=== PATIENT | male | born 1995 | race African-American/Black ===

== ENCOUNTER 2021-05-22 19:51 | Emergency (ER) | payer BC, MEDICAID, SELFPAY ==
[2021-05-22 19:58] VITALS: BP 121/69; PULSE 85; RESP 20; TEMP 36; O2SAT 99; BMI 32.5
[2021-05-22 20:22] LABS: Appearance Urine CLEAR; Color Urine YELLOW; Glucose Urine UA NEG (NEG); Leukocyte Esterase Urine NEG (NEG); Nitrite Urine NEG (NEG); Specific Gravity - Urine >= 1.030 (1.005-1.025); Urine Blood NEG (NEG); Urine Ketones NEG (NEG); Urine Protein TRACE MG/DL (NEG-TRACE)
[2021-05-22 20:38] LABS: COVID-19 Test Negative (Negative)
[2021-05-22 20:40] LABS: Amphetamine Screen Urine Not Detected (Not Detect); Barbiturates, Urine Not Detected (Not Detect); Benzodiazepines Screen Urine Not Detected (Not Detect); Cannabinoid Screen Urine Not Detected (Not Detect); Cocaine Screen Urine Not Detected (Not Detect); Fentanyl, urine Not Detected (Not Detect); Opiate Screen Urine Not Detected (Not Detect); Phencyclidine Screen Urine Not Detected (Not Detect)
--- NOTE | 2021-05-22 21:00 | ED_ITS ---
HPI - Psych General Chief Complaint: Psychiatric Symptoms Stated Complaint: [id number] Time Seen by Provider: 05/22/21 20:44 Source: patient and EMS Mode of arrival: EMS Limitations: no limitations History of Present Illness HPI Narrative: 26-year-old male no significant medical history presenting to the emergency department via ambulance on a Section 12 patient is coming from a skilled nursing. Patient tells me that he made suicidal comments to staff at the skilled nursing, he tells me he hates it there and he frequently has misunderstandings with people that work there. He tells me earlier today he eloped from the skilled nursing, ran away and [place] on [place], he tells me he was found by state game protector who put him into the vehicle and return him back to the skilled nursing. When he got back to the skilled nursing he got upset again and triggered, he made suicidal comments and said that he wanted to hurt himself. At this time he tells me that he is suicidal and he does not want to disclose his plan. He also endorses intermittent homicidal ideation towards some people he however patient will elaborate on him. He tells me he has a psychiatrist and therapist but he does not know their names. He denies visual, auditory and tactile hallucinations. He denies drugs, alcohol and tobacco use. No medical complaints at this time. Patient was evaluated by Behavioral Health team in the community Plan is pending. MD complaint: suicidal ideation Onset (ago): day(s) (1) Duration: constant History of same: No Relieving factors: none Exacerbating factors: other ( Tells me skilled nursing is a trigger.) Associated psychiatric symptoms: none Associated symptoms: denies other symptoms Treatments prior to arrival: placed on mental health hold If self harm: admits thoughts of self harm and has plan ( Will not disclose) Related Data Home Medications Medication Instructions Recorded Confirmed acetylcysteine 600 mg tablet 1,200 mg PO BID 05/22/21 05/22/21 docusate sodium 100 mg capsule 200 mg PO BID 05/22/21 05/22/21 (Colace) ferrous gluconate 325 mg (37.5 mg 324 mg PO DAILY 05/22/21 05/22/21 iron) tablet olanzapine 20 mg tablet 20 mg PO BEDTIME 05/22/21 05/22/21 polyethylene glycol 3350 17 gram 17 g PO DAILY 05/22/21 05/22/21 oral powder packet (Miralax) sertraline 200 mg capsule 200 mg PO DAILY 05/22/21 05/22/21 Allergies Allergy/AdvReac Type Severity Reaction Status Date / Time No Known Allergies Allergy Verified 05/22/21 20:06 Review of Systems Review of Systems: Constitutional : No Fever, No Chills ENT/Mouth : No Ear Pain, No Nasal Congestion, No sore throat Eyes: No Eye Pain, No Swelling, No Redness Cardiovascular : No Chest Pain, No SOB Respiratory : No Cough, No Sputum, No Dyspnea Gastrointestinal : No Nausea, No Vomiting, No Diarrhea, No Hematochezia, No Melena Genitourinary : No Dysuria, No Urinary Frequency, No Hematuria Musculoskeletal : No Myalgias Skin : No Skin Lesions, No rash Neuro : No Weakness, No Numbness, No Paresthesias, No Dizziness, No Headache Psych : positive Anxiety, No Depression, positive SI/HI All other systems reviewed and are negative Yes all other systems are reviewed and are negative [facility] Past Medical History Attestation statement: The following information was validated with the patient. Source: old records reviewed and nursing notes reviewed Social History Social History Advance Directives: No Advance Directives Information Provided: No Physical Exam Vital Signs: Vital Signs: Last Vital Signs Temp 96.8 F 05/22/21 19:58 Pulse 85 05/22/21 19:58 Resp 20 05/22/21 19:58 BP 121/69 05/22/21 19:58 Pulse Ox 99 05/22/21 19:58 BMI result Body Mass Index 32.5 VSS Appearance: Alert.? Oriented X3.? No acute distress.? Head: Normocephalic, atraumatic, no step-offs or deformities Eyes: Pupils equal, round and reactive to light.? ENT: Pharynx normal.? Neck: Normal inspection.? Neck supple.? CVS: Normal heart rate and rhythm.? Pulses normal.? Respiratory: No respiratory distress.? Breath sounds normal.? Abdomen: Soft and nontender.? Skin: Skin warm and dry.? Normal skin color.? Normal skin turgor.? Extremities: No lower extremity edema.? No calf ttp. 5/5 strength to bilateral upper and lower extremities Back: No midline tenderness, no C-spine tenderness, full range of motion, no CVA tenderness bilaterally Neuro: Oriented X 3.? No motor deficit.? No sensory deficit. CN 2-12 intact. Course Reevaluation(s) Reevaluation #1: Urine clean. Urine tox screen negative. COVID negative. Labs pending. Time: 21:08 Reevaluation #2: CBC within normal limits however, there is a slight normocytic anemia noted. Chemistry with no acute electrolyte abnormalities alk-phos is noted to be slightly elevated however patient is not complaining of abdominal pain. At this time patient will be placed in physician observation to allow more time for N revaluation. At this time patient is calm and cooperative. no complaints. Physical examination unchanged from initial. Will continue to monitor. Time: 00:31 MDM - Psych MDM Narrative Medical decision making narrative: 2028 26 yo m no known pmhx presents with SI/ HI from skilled nursing. On a section 12. Seen by N in community, pending dipo Physical examination benign. Plan basic labs, covid and urine. Medical Records Attestation: I reviewed the patient's medical records. Lab Data Attestation: I reviewed the patient's lab results. Result diagrams: 05/22/21 23:31 05/22/21 23:31 Labs: Lab Results 05/22/21 05/22/21 05/22/21 Range/Units 20:05 20:05 20:05 WBC (4.8-10.8) X10*3/uL RBC (4.60-5.80) X10*6/uL Hgb (14.0-18.0) g/dl Hct (42.0-52.0) % MCV (80.0-98.0) fL MCH (27.0-33.0) pg MCHC (31.0-36.0) g/dl RDW (11.0-16.0) % Plt Count (160-400) X10*3/uL MPV (9.4-12.4) fL Immature Gran % (Auto) (0.0-0.4) % Neut % (Auto) (45-73) % Lymph % (Auto) (20-40) % [place] % (Auto) (2-11) % Eos % (Auto) (0-4) % Baso % (Auto) (0-2) % Lymph # (Auto) (1.2-4.9) X10*3/uL [place] # (Auto) (0.1-1.2) X10*3/uL Eos # (Auto) (0.0-0.4) X10*3/uL Baso # (Auto) (0.0-0.2) X10*3/uL Abs Immat Gran (auto) (0.00-0.03) X10*3/uL Absolute Neuts (auto) (2.0-8.3) x10*3/uL Absolute Nucleated RBC (0.0-0.012) X10*3/uL Nucleated RBC % (auto) (0.0-0.2) /100WBC Sodium (135-145) mmol/L Potassium (3.3-5.1) mmol/L Chloride (96-108) mmol/L Carbon Dioxide (22-29) mmol/L Anion Gap (12-20) BUN (9-16) mg/dL Creatinine (0.5-1.4) mg/dL Estim Creat Clear Calc Estimated GFR Random Glucose (60-115) mg/dL Calcium (8.4-10.2) mg/dL Total Bilirubin (0.0-1.0) mg/dL AST (5-37) U/L ALT (0-40) U/L Alkaline Phosphatase (39-117) U/L Total Protein (6.5-8.0) g/dL Albumin (3.5-5.0) g/dL Urine Color YELLOW Urine Appearance CLEAR Urine pH 6.0 (5.0-8.0) Ur Specific [place] >= 1.030 H (1.005-1.025) Urine Protein TRACE (NEG-TRACE) MG/DL Urine Glucose (UA) NEG (NEG) MG/DL Urine Ketones NEG (NEG) MG/DL Urine Blood NEG (NEG) Urine Nitrite NEG (NEG) Ur Leukocyte Esterase NEG (NEG) Urine Opiates Screen Not Detected (Not Detect) Urine Fentanyl Screen Not Detected (Not Detect) Ur Barbiturates Screen Not Detected (Not Detect) Ur Phencyclidine Scrn Not Detected (Not Detect) Ur Amphetamines Screen Not Detected (Not Detect) U Benzodiazepines Scrn Not Detected (Not Detect) Urine Cocaine Screen Not Detected (Not Detect) U Marijuana (THC) Screen Not Detected (Not Detect) COVID-19 ([facility]) Negative (Negative) COVID-19 Clin Com See Note 05/22/21 05/22/21 Range/Units 23:31 23:31 WBC 10.1 (4.8-10.8) X10*3/uL RBC 4.93 (4.60-5.80) X10*6/uL Hgb 13.6 L (14.0-18.0) g/dl Hct 41.9 L (42.0-52.0) % MCV 85.0 (80.0-98.0) fL MCH 27.6 (27.0-33.0) pg MCHC 32.5 (31.0-36.0) g/dl RDW 15.3 (11.0-16.0) % Plt Count 357 (160-400) X10*3/uL MPV 9.7 (9.4-12.4) fL Immature Gran % (Auto) 0.3 (0.0-0.4) % Neut % (Auto) 68.8 (45-73) % Lymph % (Auto) 21.5 (20-40) % [place]mer % (Auto) 7.7 (2-11) % Eos % (Auto) 1.3 (0-4) % Baso % (Auto) 0.4 (0-2) % Lymph # (Auto) 2.2 (1.2-4.9) X10*3/uL [place] # (Auto) 0.8 (0.1-1.2) X10*3/uL Eos # (Auto) 0.1 (0.0-0.4) X10*3/uL Baso # (Auto) 0.0 (0.0-0.2) X10*3/uL Abs Immat Gran (auto) 0.03 (0.00-0.03) X10*3/uL Absolute Neuts (auto) 7.0 (2.0-8.3) x10*3/uL Absolute Nucleated RBC 0.000 (0.0-0.012) X10*3/uL Nucleated RBC % (auto) 0.0 (0.0-0.2) /100WBC Sodium 137 (135-145) mmol/L Potassium 4.2 (3.3-5.1) mmol/L Chloride 101 (96-108) mmol/L Carbon Dioxide 28 (22-29) mmol/L Anion Gap 12 (12-20) BUN 10 (9-16) mg/dL Creatinine 0.82 (0.5-1.4) mg/dL Estim Creat Clear Calc 161.7 Estimated GFR > 60 Random Glucose 94 (60-115) mg/dL Calcium 9.7 (8.4-10.2) mg/dL Total Bilirubin 0.5 (0.0-1.0) mg/dL AST 16 (5-37) U/L ALT 14 (0-40) U/L Alkaline Phosphatase 119 H (39-117) U/L Total Protein 8.7 H (6.5-8.0) g/dL Albumin 4.2 (3.5-5.0) g/dL Urine Color Urine Appearance Urine pH (5.0-8.0) Ur Specific [place] (1.005-1.025) Urine Protein (NEG-TRACE) MG/DL Urine Glucose (UA) (NEG) MG/DL Urine Ketones (NEG) MG/DL Urine Blood (NEG) Urine Nitrite (NEG) Ur Leukocyte Esterase (NEG) Urine Opiates Screen (Not Detect) Urine Fentanyl Screen (Not Detect) Ur Barbiturates Screen (Not Detect) Ur Phencyclidine Scrn (Not Detect) Ur Amphetamines Screen (Not Detect) U Benzodiazepines Scrn (Not Detect) Urine Cocaine Screen (Not Detect) U Marijuana (THC) Screen (Not Detect) COVID-19 (WES) (Negative) COVID-19 Clin Com Critical Care Time Critical Care Time Critical Care Time: No Discharge Plan Discharge Clinical Impression: Suicidal ideation, Homicidal ideations, Conduct disorder Patient Disposition: Still a Patient Prescriptions: No Action docusate sodium [Colace] 100 mg Capsule 200 mg PO BID 0RF olanzapine 20 mg Tablet 20 mg PO BEDTIME 0RF sertraline 200 mg Capsule 200 mg PO DAILY 0RF ferrous gluconate 325 mg (37.5 mg iron) Tablet 324 mg PO DAILY 0RF polyethylene glycol 3350 [Miralax] 17 gram Powder In Packet 17 g PO DAILY 0RF acetylcysteine 600 mg Tablet 1,200 mg PO BID 0RF
[2021-05-22 23:36] LABS: Basophils Percent Auto 0.4 % (0-2); Eosinophils Absolute Auto 0.1 X10*3/uL (0.0-0.4); Eosinophils Percent Auto 1.3 % (0-4); Hematocrit 41.9 % (42.0-52.0); Hemoglobin 13.6 g/dl (14.0-18.0); Imm Gran Abs Auto 0.03 X10*3/uL (0.00-0.03); Imm Gran Pct Auto 0.3 % (0.0-0.4); Lymphocytes Absolute Auto 2.2 X10*3/uL (1.2-4.9); Lymphocytes Percent Auto 21.5 % (20-40); MANUAL DIFF FLAG NO; Mean Corpuscular HGB Conc 32.5 g/dl (31.0-36.0); Mean Corpuscular Hemoglobin 27.6 pg (27.0-33.0); Mean Platelet Volume 9.7 fL (9.4-12.4); Monocytes Absolute Auto 0.8 X10*3/uL (0.1-1.2); Monocytes Percent Auto 7.7 % (2-11); Neutrophils Percent Auto 68.8 % (45-73); Platelet Count 357 X10*3/uL (160-400); Red Blood Count 4.93 X10*6/uL (4.60-5.80); Red Cell Distribution Width 15.3 % (11.0-16.0); White Blood Count 10.1 X10*3/uL (4.8-10.8)
[2021-05-22 23:57] LABS: Alanine Aminotransferase 14 U/L (0-40); Albumin Level 4.2 g/dL (3.5-5.0); Alkaline Phosphatase 119 U/L (39-117); Anion Gap 12 (12-20); Aspartate Amino Transferase 16 U/L (5-37); Bilirubin Total 0.5 mg/dL (0.0-1.0); Blood Urea Nitrogen 10 mg/dL (9-16); Calcium 9.7 mg/dL (8.4-10.2); Carbon Dioxide 28 mmol/L (22-29); Chloride 101 mmol/L (96-108); Creatinine Clr Calc Pharmacy 161.7; Estimated Glomerular Filt Rate > 60; Glucose Random 94 mg/dL (60-115); Potassium 4.2 mmol/L (3.3-5.1); Sodium 137 mmol/L (135-145); Total Protein 8.7 g/dL (6.5-8.0)
[2021-05-23 01:06] VITALS: BP 116/60; PULSE 73; RESP 18; TEMP 37.1; O2SAT 99
--- NOTE | 2021-05-23 05:49 | PC.NURSE ---
Patient stayed awake whole night watching TV, no distress observed/reported, behavior appropriate and non concerning at this time but can be impulsive as reported by Chrissy patient's mother, patient was partially assessed by BHN, patient will be reevaluated by BHN in the morning, VSS, med rec completed/pending provider's approval, will continue to monitor.l
--- NOTE | 2021-05-23 09:55 | PC.NURSE ---
Pt has been ambulatory to bathroom. denies complaints. denies SI. but does state i dont feel right . is able to state needs. wears depends with a liner for preexhisting condition. denies incontinence. Had sml amounts of stool and blood in depends. new supplies provided. This RN to look into history behind this. Pt has been in behavioral control this am.
--- NOTE | 2021-05-23 10:44 | PC.NURSE ---
batooln contacted by this RN. spoke with Shanell. Pt was seen in community last night. Will be reevaled today by Milla between 2and 5 pm.
--- NOTE | 2021-05-23 12:47 | MHC.CARE ---
CARE Team received call from Charlene Knapp [phone] Pt has services through [facility]. She reported Pt been staying a [facility]. Pt has been struggling recently due to transitioning to respite after residing with his mother who he no longer is able to. Charlene reported he is able to return to respite and the contact information is Jeanette Mccullough [phone]
--- NOTE | 2021-05-23 15:54 | PC.NURSE ---
Patient waiting for re-eval in oprder to determine placement status. At this time resting comfortably in bed no c/o at this time.
[2021-05-23] MEDS: OLANZapine 10 MG TABLET 20 MG PO (20:59)
[2021-05-23] MEDS: Docusate Sodium 100 MG CAPSULE 200 MG PO (21:00)
[2021-05-24 01:03] VITALS: BP 123/69; PULSE 74; RESP 18; TEMP 36.7; O2SAT 96
--- NOTE | 2021-05-24 06:24 | PC.NURSE ---
Patient slept through the night, no distress observed/reported, behavior appropriate and non concerning, medication compliant, disposition per [facility] is section 12 in patient bed search, no update on bed search, VSS, will continue to monitor.
--- NOTE | 2021-05-24 07:08 | PC.NURSE ---
patient appears to remain asleep at present respirations are even and unlabored, patient appears in no distress
[2021-05-24] MEDS: Docusate Sodium 100 MG CAPSULE 200 MG PO ×2 (11:50→20:27)
[2021-05-24] MEDS: Sertraline HCL 100 MG TABLET 200 MG PO (11:50)
[2021-05-24] MEDS: Ferrous Sulfate 324 MG TABLET.DR PO (11:50)
[2021-05-24] MEDS: OLANZapine 10 MG TABLET 20 MG PO (20:28)
--- NOTE | 2021-05-24 20:45 | PC.NURSE ---
Patient mother called reported that patient has diagnosis of Hidradenitis Suppurative, provider notified/assessed the patient/ordered Doxy 100 mg BID, first dose was administered at 2039, will continue to monitor.
[2021-05-25 01:18] VITALS: BP 118/70; PULSE 100; RESP 16; TEMP 36.4; O2SAT 100
--- NOTE | 2021-05-25 07:12 | PC.NURSE ---
patient appears to remain asleep at present respirations are even and unlabored patient appears in no distress
[2021-05-25] MEDS: Ferrous Sulfate 324 MG TABLET.DR PO (08:38)
[2021-05-25] MEDS: Docusate Sodium 100 MG CAPSULE 200 MG PO ×2 (08:38→20:02)
[2021-05-25] MEDS: Sertraline HCL 100 MG TABLET 200 MG PO (08:38)
[2021-05-25 16:23] VITALS: BP 133/76; PULSE 66; RESP 16; TEMP 36.8; O2SAT 99
[2021-05-25] MEDS: OLANZapine 10 MG TABLET 20 MG PO (20:01)
[2021-05-26 05:54] VITALS: BP 116/60; PULSE 68; RESP 16; TEMP 36.4; O2SAT 100
--- NOTE | 2021-05-26 06:19 | PC.NURSE ---
Patient slept through the night, no distress observed/reported, behavior quiet, isolating, and non concerning, medication compliant, disposition per [facility] is section 12 inpatient bed search, no update on bed search, VSS, will continue to monitor.
--- NOTE | 2021-05-26 07:04 | PC.NURSE ---
patient awake presently up to the nurses station frequently asking for snacks. respirations are even and unlabored patient appears in no distress
[2021-05-26] MEDS: Ferrous Sulfate 324 MG TABLET.DR PO (08:20)
[2021-05-26] MEDS: Docusate Sodium 100 MG CAPSULE 200 MG PO (08:20)
[2021-05-26] MEDS: Sertraline HCL 100 MG TABLET 200 MG PO (08:20)
== END 2021-05-26 14:49 ==
PROVIDERS: Physician Assistant; Emergency Provider Emergency Medicine Emergency Medical Services; PCP Nurse Practitioner Family
DX: F33.1 Major depressive disorder, recurrent, moderate (principal); F91.9 Conduct disorder, unspecified; R45.851 Suicidal ideations; R45.850 Homicidal ideations; Z20.822 Contact with and (suspected) exposure to COVID-19; Z79.899 Other long term (current) drug therapy
CPT/HCPCS: 36415; 80053; 80307; 81003; 85025; 87635; 99285

== ENCOUNTER 2021-07-17 21:29 | Inpatient (IN) | payer BC, OTHER, SELFPAY ==
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
[2021-07-17 21:35] VITALS: BP 149/66; PULSE 81; RESP 16; TEMP 36.5; O2SAT 98; BMI 25.8
[2021-07-17 22:13] LABS: COVID-19 Test Negative (Negative)
[2021-07-17 22:28] LABS: Amphetamine Screen Urine Not Detected (Not Detect); Barbiturates, Urine Not Detected (Not Detect); Benzodiazepines Screen Urine Not Detected (Not Detect); Cannabinoid Screen Urine Not Detected (Not Detect); Cocaine Screen Urine Not Detected (Not Detect); Fentanyl, urine Not Detected (Not Detect); Opiate Screen Urine Not Detected (Not Detect); Phencyclidine Screen Urine Not Detected (Not Detect)
--- NOTE | 2021-07-18 | ECG_ITS ---
Test Reason : MED CLEARANCE Blood Pressure : / mmHG Vent. Rate : 062 BPM Atrial Rate : 062 BPM P-R Int : 160 ms QRS Dur : 086 ms QT Int : 434 ms P-R-T Axes : 014 037 032 degrees QTc Int : 440 ms Normal sinus rhythm Normal ECG No previous ECGs available Referred By: Katarina Lemus Electronically Signed By:JACE MATTHEW MD
[2021-07-18 06:10] VITALS: BP 130/53; PULSE 74; RESP 16; TEMP 36.8; O2SAT 96
--- NOTE | 2021-07-18 07:02 | PC.NURSE ---
Patient slept through the night, no distress observed/reported, behavior quiet and non concerning at this time, med rec completed/pending provider's approval, disposition per care team is section 12 inpatient bed search, will continue to monitor.
--- NOTE | 2021-07-18 07:13 | PC.NURSE ---
patient appears to remain at rest at present respirations are even and unlabored patient appears in no distress
[2021-07-18 08:43] VITALS: BP 118/59; PULSE 81; RESP 18; O2SAT 96
[2021-07-18 14:35] LABS: Basophils Percent Auto 0.5 % (0-2); Eosinophils Absolute Auto 0.1 X10*3/uL (0.0-0.4); Eosinophils Percent Auto 1.2 % (0-4); Hematocrit 42.9 % (42.0-52.0); Hemoglobin 13.7 g/dl (14.0-18.0); Imm Gran Abs Auto 0.01 X10*3/uL (0.00-0.03); Imm Gran Pct Auto 0.2 % (0.0-0.4); Lymphocytes Absolute Auto 1.9 X10*3/uL (1.2-4.9); Lymphocytes Percent Auto 32.9 % (20-40); MANUAL DIFF FLAG SCAN; Mean Corpuscular HGB Conc 31.9 g/dl (31.0-36.0); Mean Corpuscular Hemoglobin 27.7 pg (27.0-33.0); Mean Corpuscular Volume 86.8 fL (80.0-98.0); Mean Platelet Volume 10.3 fL (9.4-12.4); Monocytes Absolute Auto 1.3 X10*3/uL (0.1-1.2); Monocytes Percent Auto 21.7 % (2-11); Neutrophils Absolute Auto 2.5 x10*3/uL (2.0-8.3); Neutrophils Percent Auto 43.5 % (45-73); Platelet Count 301 X10*3/uL (160-400); Red Blood Count 4.94 X10*6/uL (4.60-5.80); Red Cell Distribution Width 14.6 % (11.0-16.0); SCAN SMEAR FLAG 1; White Blood Count 5.8 X10*3/uL (4.8-10.8)
[2021-07-18 14:42] LABS: Estimated Average Glucose 100 mg/dL; Hemoglobin A1c % 5.1 %
[2021-07-18 14:48] LABS: Alanine Aminotransferase 13 U/L (0-40); Albumin Level 3.9 g/dL (3.5-5.0); Alkaline Phosphatase 132 U/L (39-117); Anion Gap 11 (12-20); Aspartate Amino Transferase 17 U/L (5-37); Bilirubin Total 0.5 mg/dL (0.0-1.0); Blood Urea Nitrogen 13 mg/dL (9-16); Carbon Dioxide 28 mmol/L (22-29); Chloride 101 mmol/L (96-108); Cholesterol 193 mg/dL; Creatinine Clr Calc Pharmacy 136.7; Estimated Glomerular Filt Rate > 60; Glucose Random 74 mg/dL (60-115); HDL Cholesterol 52 mg/dL; LDL Cholesterol Calculated 133 mg/dl; Potassium 4.3 mmol/L (3.3-5.1); Sodium 136 mmol/L (135-145); Total Protein 8.2 g/dL (6.5-8.0); Triglycerides 40 mg/dL
[2021-07-18 14:54] LABS: SLIDE REVIEW VERIFIED
[2021-07-18 15:10] LABS: TSH reflex Free T4 0.75 uIU/mL (0.32-4.0)
[2021-07-18 16:28] VITALS: BP 117/56; PULSE 80; RESP 16; TEMP 36.4; O2SAT 98
--- NOTE | 2021-07-18 17:15 | PC.NURSE ---
Pt refused flu vaccine
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
[2021-07-18 20:22] VITALS: BP 118/56; PULSE 69; RESP 16; TEMP 36.7; O2SAT 98
[2021-07-18] MEDS: OLANZapine 10 MG TABLET 20 MG PO (20:33)
[2021-07-19 09:39] VITALS: BP 116/58; PULSE 66; RESP 16; TEMP 36.8; O2SAT 96
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
[2021-07-19 20:31] VITALS: BP 108/54; PULSE 60; RESP 16; TEMP 36.8; O2SAT 97
[2021-07-19] MEDS: OLANZapine 10 MG TABLET 20 MG PO (21:11)
[2021-07-20 10:22] VITALS: BP 106/59; PULSE 63; RESP 14; TEMP 36.6; O2SAT 97
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
[2021-07-20 18:00] VITALS: BP 107/58; PULSE 65; RESP 18; TEMP 36.6; O2SAT 98
[2021-07-20] MEDS: OLANZapine 10 MG TABLET 20 MG PO (20:53)
[2021-07-21 08:42] VITALS: BP 112/67; PULSE 53; RESP 18; TEMP 36.4; O2SAT 98
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
--- NOTE | 2021-07-21 15:17 | MHC.CLN ---
NUTRITION NURSE REPORTED THAT PATIENT NOT EATING. VISITED WITH PATIENT. STATED THAT NOT EATING OR DRINKING. NO REASON PROVIDED. ENCOURAGED PATIENT TO MAKE OWN SELECTIONS FOR MEALS. RD TO FOLLOW FOR INTAKE.
[2021-07-21 18:00] VITALS: BP 118/66; PULSE 70; RESP 18; TEMP 36.7; O2SAT 96
[2021-07-21] MEDS: OLANZapine 10 MG TABLET 20 MG PO (21:05)
--- NOTE | 2021-07-21 21:50 | PC.NURSE ---
Patient had bowel incontinence. Bed linens changed, room cleaned, patient changed. Notice some patrick red blood on sheets. notified.
[2021-07-22 10:00] VITALS: BP 88/52; PULSE 93; RESP 16; TEMP 36.9; O2SAT 95
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
--- NOTE | 2021-07-22 16:57 | P.CONGS_ITS ---
History of Present Illness Consult details Consult date: 07/22/21 Requesting physician: Aman Rebollar Narrative: 26-year-old male patient presenting with a prior history of hidradenitis, recently underwent incision and drainage of a sacral abscess in early June. He also has open areas in his lower extremities mainly the left thigh. Review of previous records from an outside facility recommended packing the wound with silver alginate on a daily basis. Apparently the patient's mother was packing the wound up until approximately 1 week ago when this was stopped. The patient denies any pain associated with the sacral wound does note occasional bleeding. He does have a pad covering the open wound and notes some blood on his sheets. Review of Systems Review of Systems: Yes all other systems are reviewed and are negative Integumentary/Breasts: Skin/Breast: Reports as per HPI Psychiatric: Psychiatric: Reports depression PMFSH Past Medical History Medical History (Updated 07/22/21 @ 17:01 by Surya Blair MD) Conduct disorder Hidradenitis Social History Social History (Updated 07/17/21 @ 21:48 by Batsheva Bosch DO) Household Members: Other Household Members Other:: [facility] Respite facility Housing: Assisted Living Facility Do you presently have visiting nurse or other home services: No Unable to assess alcohol history related to: Unknown Patient Tobacco Use Status: Never used Tobacco Use of substances other than those prescribed or required for medical reasons: No Currently Displaying Signs/Symptoms of Drug Intoxication Withdrawal: No Have you been hit, kicked, punched, or otherwise hurt by someone within the past year? If so, by whom?: No Do you feel safe in your current relationship?: No Current Relationship Is there a partner from a previous relationship who is making you feel unsafe now?: No Are you made to feel afraid or neglected: No Advance Directives: No Healthcare Proxy: No Guardian: Yes (Mother- Chrissy) Do you have thoughts of harming others: None Do you have a plan to hurt others: No Plan Recently lost weight without trying: No Nutrition Risks: No Nutritional Risk Poor oral hygiene: No service: No Sexual orientation: Don't Know Meds Allergies Allergy/AdvReac Type Severity Reaction Status Date / Time No Known Allergies Allergy Verified 05/22/21 20:06 Active Medications: Current Medications Acetaminophen (Acetaminophen 325 Mg Tablet) 650 mg PO Q6H PRN PRN Reason: Headache/Pain Mild Scale (1-3) Al Hydroxide/Mg Hydroxide (Magnesium Hydrox/Alum Hydrox 30 Ml Oral.Susp) 30 ml PO Q6H PRN PRN Reason: Heartburn/Nausea Docusate Sodium (Docusate Sodium 100 Mg Capsule) 200 mg PO BID [facility] Last Admin: 07/22/21 10:10 Dose: Not Given Documented by: Ferrous Sulfate (Ferrous Sulfate 324 Mg Tablet.Dr) 324 mg PO DAILY [facility] Last Admin: 07/22/21 10:10 Dose: Not Given Documented by: Hydroxyzine HCl (Hydroxyzine Hcl 50 Mg Tablet) 50 mg PO BID PRN PRN Reason: anxiety Hydroxyzine HCl (Hydroxyzine Hcl 25 Mg Tablet) 25 mg PO Q6H PRN PRN Reason: Anxiety Magnesium Hydroxide (Milk Of Magnesia 30 Ml Oral.Susp) 30 ml PO DAILY PRN PRN Reason: Constipation Non-Formulary Medication (Acetylcysteine) 1,200 mg PO BID [facility] Non-Formulary Medication (Minocycline) 1 cap PO BID [facility] Olanzapine (Olanzapine 10 Mg Tablet) 20 mg PO BEDTIME [facility] Last Admin: 07/21/21 21:05 Dose: 20 mg Documented by: Olanzapine (Olanzapine 10 Mg Vial) 10 mg IM BEDTIME PRN PRN Reason: refusal of PO zyprexa (Yoan's Sertraline HCl (Sertraline Hcl 100 Mg Tablet) 200 mg PO DAILY [facility] Last Admin: 07/22/21 10:10 Dose: Not Given Documented by: Trazodone HCl (Trazodone Hcl 100 Mg Tablet) 100 mg PO BEDTIME PRN PRN Reason: Insomnia Home Medications Medication Instructions Recorded Confirmed Last Taken Type acetylcysteine 600 mg tablet 1,200 mg PO BID 05/22/21 07/17/21 Unknown History docusate sodium 100 mg capsule 200 mg PO BID 05/22/21 07/17/21 05/20/21 20:00 History (Colace) olanzapine 20 mg tablet 20 mg PO BEDTIME 05/22/21 07/17/21 05/20/21 20:00 History sertraline 200 mg capsule 200 mg PO DAILY 05/22/21 07/17/21 05/20/21 20:00 History ferrous sulfate 325 mg (65 mg 1 tab PO DAILY 07/17/21 07/17/21 Unknown History iron) tablet,delayed release hydroxyzine pamoate 50 mg capsule 1 cap PO BID PRN 07/17/21 07/17/21 Unknown History minocycline 100 mg capsule 1 cap PO BID 07/17/21 07/17/21 Unknown History Physical Exam Vital Signs: Vital Signs: Last Vital Signs Temp 98.4 F 07/22/21 10:00 Pulse 93 07/22/21 10:00 Resp 16 07/22/21 10:00 BP 88/52 L 07/22/21 10:00 Pulse Ox 95 07/22/21 10:00 BMI result Body Mass Index 25.8 Const: General: cooperative and no acute distress Nutritional Appearance: overweight HEENT: Head: Yes normocephalic and Yes atraumatic Ears: hearing grossly normal bilaterally Resp: Effort & Inspection: normal respiratory effort, no audible wheezes, no cough and no respiratory distress Back/Spine/Pelvis: Other: Incision and drainage site in the lower mid back with an incision approximately 2 cm in length. Wound base is granulated with no evidence of underlying abscess. No surrounding erythema is appreciated. No tenderness to palpation. Back/spine/pelvis image: 1. Incision and drainage site Skin: Other: As noted above in back Extrem: Other: Areas of chronic hidradenitis in the lower extremities especially the left upper medial thigh. Results Labs Result diagrams: 07/18/21 14:26 07/18/21 14:26 Labs: All other labs normal. Assessment and Plan (1) Hidradenitis: Status: Acute Plan Patient with a prior history of hidradenitis an abscess of the lower back in the midline, status post incision and drainage at an outside facility. The wounds are clean with excellent granulation tissue at the base. There is no evidence of ongoing infection at this time. Recommend applying silver alginate to the wound followed by dry sterile dressing to be changed every other day. No additional surgery required at this time. Procedures Date of Service Date of Service: 07/22/21
[2021-07-22 18:00] VITALS: BP 129/74; PULSE 97; RESP 95; TEMP 36.8; O2SAT 95
[2021-07-22] MEDS: OLANZapine 10 MG TABLET 20 MG PO (20:49)
[2021-07-23 09:00] VITALS: BP 109/76; PULSE 76; RESP 16; TEMP 36.4; O2SAT 97
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
--- NOTE | 2021-07-23 15:26 | MHC.CLN ---
F/U NURSE REPORTED THAT PATIENT NOT EATING X 4-5 DAYS. MD ADDED ENSURE TID PER PATIENT REQUEST. PROVIDES 1050 KCAL, 60 G PROTEIN. ATE 100% OF LUNCH TODAY. DX HIDRADENITIS SUPPURATIVE WITH ABSCESS TO LOWER BACK IN MIDLINE. MONITOR INTAKE CLOSELY.
[2021-07-23 21:43] VITALS: BP 118/60; PULSE 89; TEMP 36.7; O2SAT 96
[2021-07-23] MEDS: OLANZapine 10 MG TABLET 20 MG PO (21:51)
[2021-07-24 09:36] VITALS: BP 114/67; PULSE 62; RESP 16; TEMP 36.2; O2SAT 98
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
[2021-07-24] MEDS: OLANZapine 10 MG TABLET 20 MG PO (22:05)
[2021-07-24 22:09] VITALS: BP 118/56; PULSE 69; TEMP 37; O2SAT 98
[2021-07-25 06:00] VITALS: BP 89/50; PULSE 56; RESP 12; TEMP 36.5; O2SAT 97
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
[2021-07-25 20:55] VITALS: BP 126/66; PULSE 79; RESP 18; TEMP 37.1; O2SAT 99
[2021-07-25] MEDS: OLANZapine 10 MG TABLET 30 MG PO (22:16)
[2021-07-25] MEDS: Docusate Sodium 100 MG CAPSULE 200 MG PO (22:16)
[2021-07-25] MEDS: traZODone HCL 100 MG TABLET PO (22:17)
--- NOTE | 2021-07-26 00:53 | PC.NURSE ---
Pt requested and drank 2 vanilla ensures over and above his TID.
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
[2021-07-26 09:42] VITALS: PULSE 61; RESP 18; TEMP 36.3; O2SAT 98
[2021-07-26 22:16] VITALS: BP 115/57; PULSE 74; RESP 18; TEMP 36.9; O2SAT 97
[2021-07-26] MEDS: OLANZapine 10 MG TABLET 30 MG PO (22:31)
[2021-07-27 09:44] VITALS: BP 111/60; PULSE 75; RESP 18; TEMP 36.6; O2SAT 99
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
[2021-07-27 22:40] VITALS: BP 136/63; PULSE 83; RESP 16; TEMP 36.7; O2SAT 98
[2021-07-27] MEDS: OLANZapine 10 MG TABLET 30 MG PO (22:51)
[2021-07-28 09:14] VITALS: BP 118/59; PULSE 75; RESP 20; TEMP 36.3; O2SAT 99
--- NOTE | 2021-07-28 15:14 | MHC.CLN ---
F/U PATIENT REPORTED TO THIS [employer] MANAGER THAT HE HAS STARTED EATING IN THE PAST FEW DAYS. ACCEPTS ENSURE. CONTINUE REGULAR DIET WITH ENSURE TID.
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
[2021-07-28] MEDS: OLANZapine ODT 10 MG TAB.RAPDIS 30 MG TRANSLINGU (21:58)
[2021-07-28] MEDS: Sertraline HCL 100 MG TABLET 200 MG PO (21:58)
[2021-07-28 22:27] VITALS: BP 107/53; PULSE 82; TEMP 36.8; O2SAT 98
[2021-07-29 08:00] VITALS: BP 124/67; PULSE 55; RESP 16; TEMP 36.6; O2SAT 96
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
[2021-07-29 18:00] VITALS: BP 123/61; PULSE 77; RESP 20; TEMP 36.7; O2SAT 98
[2021-07-29 20:54] VITALS: BP 107/51; PULSE 77; TEMP 37; O2SAT 98
[2021-07-29] MEDS: OLANZapine ODT 10 MG TAB.RAPDIS 30 MG TRANSLINGU (22:15)
[2021-07-29] MEDS: Sertraline HCL 100 MG TABLET 200 MG PO (22:17)
[2021-07-30 10:50] VITALS: BP 111/53; PULSE 79; RESP 16; TEMP 36.6; O2SAT 98
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
[2021-07-30 18:00] VITALS: BP 119/59; PULSE 74; RESP 16; TEMP 36.6; O2SAT 98
[2021-07-30] MEDS: OLANZapine ODT 10 MG TAB.RAPDIS 30 MG TRANSLINGU (21:57)
[2021-07-30] MEDS: Sertraline HCL 100 MG TABLET 200 MG PO (21:58)
[2021-07-31 09:11] VITALS: BP 96/55; PULSE 53; RESP 16; TEMP 36.6; O2SAT 97
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
[2021-07-31 22:33] VITALS: BP 119/57; PULSE 81; RESP 18; TEMP 36.7; O2SAT 95
[2021-07-31] MEDS: OLANZapine ODT 10 MG TAB.RAPDIS 30 MG TRANSLINGU (22:37)
[2021-07-31] MEDS: Sertraline HCL 100 MG TABLET 200 MG PO (22:37)
[2021-08-01 09:03] VITALS: BP 97/54; PULSE 63; RESP 20; TEMP 36.7; O2SAT 97
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
--- NOTE | 2021-08-01 12:48 | PC.NURSE ---
Patient alert, oriented. States he is safe to be discharged, is happy to be going to another halfway. Denies SI/HI, denies any concerns. Patient and community provider given discharge instructions, verbalized understanding. Dressing change completed after shower. Wound clean, no drainage noted.
== END 2021-08-01 12:55 | disposition other institution (70) | DRG 755 ==
LOC: HO.ED 07-18 11:36 → HO.PADLT16 07-18 16:11
PROVIDERS: Social Worker; Admitting Provider Psychiatry & Neurology Psychiatry; Emergency Provider Emergency Medicine; Visit Provider Psychiatry & Neurology Psychiatry
DX: F43.24 Adjustment disorder with disturbance of conduct (principal); R45.851 Suicidal ideations; R45.850 Homicidal ideations; F42.9 Obsessive-compulsive disorder, unspecified; Z91.11 Patient's noncompliance with dietary regimen; Z91.14 Patient's other noncompliance with medication regimen; F84.0 Autistic disorder; L73.2 Hidradenitis suppurativa; Z20.822 Contact with and (suspected) exposure to COVID-19; Z79.899 Other long term (current) drug therapy
CPT/HCPCS: 36415; 80053; 80061; 80307; 83036; 84443; 85025; 87635; 93005; 99285

== ENCOUNTER 2021-08-12 20:57 | Emergency (ER) | payer BC, MEDICAID, SELFPAY ==
[2021-08-12 21:03] VITALS: BP 144/77; PULSE 90; RESP 18; TEMP 37.4; O2SAT 98; BMI 33.2
--- NOTE | 2021-08-12 21:05 | ED.PSYCH ---
HPI - Psych General Chief Complaint: Psychiatric Symptoms Stated Complaint: crisis Time Seen by Provider: 08/12/21 21:05 Source: patient Mode of arrival: EMS Limitations: no limitations History of Present Illness HPI Narrative: This is a 26-year-old male past medical history significant for autism spectrum disorder, depression, OCD presents the emergency department after excuse being from his halfway. According to patient the halfway called 911 because the skate, police chased him, got him and advised him to come to the hospital for evaluation. Patient tells me he is suicidal but he does not feel comfortable sharing a plan with me. He also reports associated anxiety and depression. Not willing to elaborate much. Denies, auditory and tactile hallucinations. He denies drugs, alcohol and tobacco. Denies homicidal ideation as well. No medical complaints MD complaint: suicidal ideation, feels depressed and anxiety Onset (ago): unknown History of same: Yes Relieving factors: none Exacerbating factors: none Associated psychiatric symptoms: none Associated symptoms: denies other symptoms Treatments prior to arrival: none Related Data Home Medications Medication Instructions Recorded Confirmed acetylcysteine 600 mg tablet 1,200 mg PO BID 05/22/21 08/12/21 docusate sodium 100 mg capsule 200 mg PO BID 05/22/21 08/12/21 (Colace) ferrous sulfate 325 mg (65 mg 1 tab PO DAILY 07/17/21 08/12/21 iron) tablet,delayed release amoxicillin 875 mg-potassium 1 tab PO BID 08/12/21 08/12/21 clavulanate 125 mg tablet cholecalciferol (vitamin D3) 50 1 tab PO DAILY 08/12/21 08/12/21 mcg (2,000 unit) tablet hydroxyzine HCl 50 mg tablet 1 tab PO BID PRN 08/12/21 08/12/21 multivitamin with folic acid 400 1 tab PO DAILY 08/12/21 08/12/21 mcg tablet (Tab-A-Walter) olanzapine 20 mg tablet 30 mg PO BEDTIME 08/12/21 08/12/21 sertraline 100 mg tablet 2 tab PO DAILY 08/12/21 08/12/21 Allergies Allergy/AdvReac Type Severity Reaction Status Date / Time No Known Allergies Allergy Verified 05/22/21 20:06 Review of Systems Review of Systems: Constitutional : No Fever, No Chills ENT/Mouth : No Ear Pain, No Nasal Congestion, No sore throat Eyes: No Eye Pain, No Swelling, No Redness Cardiovascular : No Chest Pain, No SOB Respiratory : No Cough, No Sputum, No Dyspnea Gastrointestinal : No Nausea, No Vomiting, No Diarrhea, No Hematochezia, No Melena Genitourinary : No Dysuria, No Urinary Frequency, No Hematuria Musculoskeletal : No Myalgias Skin : No Skin Lesions, No rash Neuro : No Weakness, No Numbness, No Paresthesias, No Dizziness, No Headache Psych : positive Anxiety, positive Depression, positive SI/HI All other systems reviewed and are negative Yes all other systems are reviewed and are negative [facility] Past Medical History Attestation statement: The following information was validated with the patient. Source: old records reviewed and nursing notes reviewed Medical History Conduct disorder Hidradenitis Social History Social History Household Members: Other Household Members Other:: [facility] Respite facility Housing: Assisted Living Facility Do you presently have visiting nurse or other home services: No Unable to assess alcohol history related to: Unknown Patient Tobacco Use Status: Never used Tobacco Advance Directives: No Advance Directives Information Provided: No service: No Sexual orientation: Don't Know Physical Exam Vital Signs: Vital Signs: Last Vital Signs Temp 99.4 F 08/12/21 21:03 Pulse 90 08/12/21 21:03 Resp 18 08/12/21 21:03 BP 144/77 H 08/12/21 21:03 Pulse Ox 98 08/12/21 21:03 BMI result Body Mass Index 33.2 VSS Appearance: Alert.? Oriented X3.? No acute distress.? Head: Normocephalic, atraumatic, no step-offs or deformities Eyes: Pupils equal, round and reactive to light.? ENT: Pharynx normal.? Neck: Normal inspection.? Neck supple.? CVS: Normal heart rate and rhythm.? Pulses normal.? Respiratory: No respiratory distress.? Breath sounds normal.? Abdomen: Soft and nontender.? Skin: Skin warm and dry.? Normal skin color.? Normal skin turgor.? Extremities: No lower extremity edema.? No calf ttp. 5/5 strength to bilateral upper and lower extremities Back: No midline tenderness, no C-spine tenderness, full range of motion, no CVA tenderness bilaterally Neuro: Oriented X 3.? No motor deficit.? No sensory deficit. CN 2-12 intact Course Reevaluation(s) Reevaluation #1: CBC appears to be around patient's baseline. Chemistry with no acute electrolyte abnormalities requiring intervention. Magnesium is slightly low however tolerating p.o. fluids, encouraging hydration. Urine clean. Urine toxicology clean. Ethanol negative. COVID negative. At this time patient will be placed in physician observation to allow more time to be evaluated by the behavioral health team. At time observation was started patient common cooperative no acute distress. Will continue to monitor. Time: 23:55 MDM - Psych MDM Narrative Medical decision making narrative: 2105 26-year-old male with conduct disorder presenting to the emergency department after being brought in by ambulance and police status post eloping from halfway. He reports SI without a specific plan, anxiety and depression. Physical examination benign Plan medical clearance then behavioral health consult Medical Records Attestation: I reviewed the patient's medical records. Lab Data Attestation: I reviewed the patient's lab results. Result diagrams: 08/12/21 21:22 08/12/21 21:22 Labs: Lab Results 08/12/21 08/12/21 08/12/21 Range/Units 21:14 21:14 21:14 WBC (4.8-10.8) X10*3/uL RBC (4.60-5.80) X10*6/uL Hgb (14.0-18.0) g/dl Hct (42.0-52.0) % MCV (80.0-98.0) fL MCH (27.0-33.0) pg MCHC (31.0-36.0) g/dl RDW (11.0-16.0) % Plt Count (160-400) X10*3/uL MPV (9.4-12.4) fL Immature Gran % (Auto) (0.0-0.4) % Neut % (Auto) (45-73) % Lymph % (Auto) (20-40) % Bea[place]gard % (Auto) (2-11) % Eos % (Auto) (0-4) % Baso % (Auto) (0-2) % Lymph # (Auto) (1.2-4.9) X10*3/uL [place] # (Auto) (0.1-1.2) X10*3/uL Eos # (Auto) (0.0-0.4) X10*3/uL Baso # (Auto) (0.0-0.2) X10*3/uL Abs Immat Gran (auto) (0.00-0.03) X10*3/uL Absolute Neuts (auto) (2.0-8.3) x10*3/uL Absolute Nucleated RBC (0.0-0.012) X10*3/uL Nucleated RBC % (auto) (0.0-0.2) /100WBC Sodium (135-145) mmol/L Potassium (3.3-5.1) mmol/L Chloride (96-108) mmol/L Carbon Dioxide (22-29) mmol/L Anion Gap (12-20) BUN (9-16) mg/dL Creatinine (0.5-1.4) mg/dL Estim Creat Clear Calc Estimated GFR Random Glucose (60-115) mg/dL Calcium (8.4-10.2) mg/dL Magnesium (1.6-2.6) mg/dL Total Bilirubin (0.0-1.0) mg/dL AST (5-37) U/L ALT (0-40) U/L Alkaline Phosphatase (39-117) U/L Total Protein (6.5-8.0) g/dL Albumin (3.5-5.0) g/dL Urine Color YELLOW Urine Appearance CLEAR Urine pH 6.0 (5.0-8.0) Ur Specific [place] >= 1.030 H (1.005-1.025) Urine Protein NEG (NEG-TRACE) MG/DL Urine Glucose (UA) NEG (NEG) MG/DL Urine Ketones NEG (NEG) MG/DL Urine Blood NEG (NEG) Urine Nitrite NEG (NEG) Ur Leukocyte Esterase NEG (NEG) Urine Opiates Screen Not Detected (Not Detect) Urine Fentanyl Screen Not Detected (Not Detect) Ur Barbiturates Screen Not Detected (Not Detect) Ur Phencyclidine Scrn Not Detected (Not Detect) Ur Amphetamines Screen Not Detected (Not Detect) U Benzodiazepines Scrn Not Detected (Not Detect) Urine Cocaine Screen Not Detected (Not Detect) U Marijuana (THC) Screen Not Detected (Not Detect) Ethyl Alcohol mg/dL COVID-19 ([facility]) Negative (Negative) COVID-19 Clin Com See Note 08/12/21 08/12/21 08/12/21 Range/Units 21:22 21:22 21:22 WBC 10.8 (4.8-10.8) X10*3/uL RBC 4.99 (4.60-5.80) X10*6/uL Hgb 13.9 L (14.0-18.0) g/dl Hct 43.3 (42.0-52.0) % MCV 86.8 (80.0-98.0) fL MCH 27.9 (27.0-33.0) pg MCHC 32.1 (31.0-36.0) g/dl RDW 13.6 (11.0-16.0) % Plt Count 401 H D (160-400) X10*3/uL MPV 9.8 (9.4-12.4) fL Immature Gran % (Auto) 0.3 (0.0-0.4) % Neut % (Auto) 68.6 (45-73) % Lymph % (Auto) 22.5 (20-40) % Bea[place]gard % (Auto) 7.7 (2-11) % Eos % (Auto) 0.6 (0-4) % Baso % (Auto) 0.3 (0-2) % Lymph # (Auto) 2.4 (1.2-4.9) X10*3/uL Bea[place]gard # (Auto) 0.8 (0.1-1.2) X10*3/uL Eos # (Auto) 0.1 (0.0-0.4) X10*3/uL Baso # (Auto) 0.0 (0.0-0.2) X10*3/uL Abs Immat Gran (auto) 0.03 (0.00-0.03) X10*3/uL Absolute Neuts (auto) 7.4 (2.0-8.3) x10*3/uL Absolute Nucleated RBC 0.000 (0.0-0.012) X10*3/uL Nucleated RBC % (auto) 0.0 (0.0-0.2) /100WBC Sodium 139 (135-145) mmol/L Potassium 4.3 (3.3-5.1) mmol/L Chloride 101 (96-108) mmol/L Carbon Dioxide 29 (22-29) mmol/L Anion Gap 13 (12-20) BUN 12 (9-16) mg/dL Creatinine 1.08 (0.5-1.4) mg/dL Estim Creat Clear Calc 124.1 Estimated GFR > 60 Random Glucose 102 D (60-115) mg/dL Calcium 9.7 D (8.4-10.2) mg/dL Magnesium 1.5 L (1.6-2.6) mg/dL Total Bilirubin 0.4 (0.0-1.0) mg/dL AST 16 (5-37) U/L ALT 13 (0-40) U/L Alkaline Phosphatase 140 H (39-117) U/L Total Protein 9.0 H (6.5-8.0) g/dL Albumin 3.9 (3.5-5.0) g/dL Urine Color Urine Appearance Urine pH (5.0-8.0) Ur Specific [place] (1.005-1.025) Urine Protein (NEG-TRACE) MG/DL Urine Glucose (UA) (NEG) MG/DL Urine Ketones (NEG) MG/DL Urine Blood (NEG) Urine Nitrite (NEG) Ur Leukocyte Esterase (NEG) Urine Opiates Screen (Not Detect) Urine Fentanyl Screen (Not Detect) Ur Barbiturates Screen (Not Detect) Ur Phencyclidine Scrn (Not Detect) Ur Amphetamines Screen (Not Detect) U Benzodiazepines Scrn (Not Detect) Urine Cocaine Screen (Not Detect) U Marijuana (THC) Screen (Not Detect) Ethyl Alcohol < 10 mg/dL COVID-19 ([facility]) (Negative) COVID-19 Clin Com Critical Care Time Critical Care Time Critical Care Time: No Discharge Plan Discharge Clinical Impression: Suicidal ideation, Depression, Acute anxiety Patient Disposition: Still a Patient Prescriptions: No Action docusate sodium [Colace] 100 mg Capsule 200 mg PO BID 0RF acetylcysteine 600 mg Tablet 1,200 mg PO BID 0RF olanzapine 20 mg tablet 30 mg PO BEDTIME 0RF multivitamin with folic acid [Tab-A-Walter] 400 mcg tablet 1 tab PO DAILY 0RF hydroxyzine HCl 50 mg tablet 1 tab PO BID PRN (Reason: Anxiety) 0RF amoxicillin-pot clavulanate 875-125 mg tablet 1 tab PO BID 0RF cholecalciferol (vitamin D3) 50 mcg (2,000 unit) tablet 1 tab PO DAILY 0RF sertraline 100 mg tablet 2 tab PO DAILY 0RF ferrous sulfate 325 mg (65 mg iron) tablet,delayed release (DR/EC) 1 tab PO DAILY 0RF
[2021-08-12 21:25] LABS: Appearance Urine CLEAR; Color Urine YELLOW; Glucose Urine UA NEG (NEG); Leukocyte Esterase Urine NEG (NEG); Nitrite Urine NEG (NEG); Specific Gravity - Urine >= 1.030 (1.005-1.025); Urine Blood NEG (NEG); Urine Ketones NEG (NEG); Urine Protein NEG (NEG-TRACE)
--- NOTE | 2021-08-12 21:27 | PHA.MEDREC ---
Pharmacy Consult ? Medication Reconciliation Pharmacy has completed the medication reconciliation.
[2021-08-12 21:28] LABS: Basophils Percent Auto 0.3 % (0-2); Eosinophils Absolute Auto 0.1 X10*3/uL (0.0-0.4); Eosinophils Percent Auto 0.6 % (0-4); Hematocrit 43.3 % (42.0-52.0); Hemoglobin 13.9 g/dl (14.0-18.0); Imm Gran Abs Auto 0.03 X10*3/uL (0.00-0.03); Imm Gran Pct Auto 0.3 % (0.0-0.4); Lymphocytes Absolute Auto 2.4 X10*3/uL (1.2-4.9); Lymphocytes Percent Auto 22.5 % (20-40); MANUAL DIFF FLAG NO; Mean Corpuscular HGB Conc 32.1 g/dl (31.0-36.0); Mean Corpuscular Hemoglobin 27.9 pg (27.0-33.0); Mean Corpuscular Volume 86.8 fL (80.0-98.0); Mean Platelet Volume 9.8 fL (9.4-12.4); Monocytes Absolute Auto 0.8 X10*3/uL (0.1-1.2); Monocytes Percent Auto 7.7 % (2-11); Neutrophils Absolute Auto 7.4 x10*3/uL (2.0-8.3); Neutrophils Percent Auto 68.6 % (45-73); Platelet Count 401 X10*3/uL (160-400); Red Blood Count 4.99 X10*6/uL (4.60-5.80); Red Cell Distribution Width 13.6 % (11.0-16.0); White Blood Count 10.8 X10*3/uL (4.8-10.8)
[2021-08-12 21:39] LABS: COVID-19 Test Negative (Negative)
[2021-08-12 21:41] LABS: Amphetamine Screen Urine Not Detected (Not Detect); Barbiturates, Urine Not Detected (Not Detect); Benzodiazepines Screen Urine Not Detected (Not Detect); Cannabinoid Screen Urine Not Detected (Not Detect); Cocaine Screen Urine Not Detected (Not Detect); Fentanyl, urine Not Detected (Not Detect); Opiate Screen Urine Not Detected (Not Detect); Phencyclidine Screen Urine Not Detected (Not Detect)
[2021-08-12 21:44] LABS: Ethanol < 10 mg/dL
[2021-08-12 21:47] LABS: Alanine Aminotransferase 13 U/L (0-40); Albumin Level 3.9 g/dL (3.5-5.0); Alkaline Phosphatase 140 U/L (39-117); Anion Gap 13 (12-20); Aspartate Amino Transferase 16 U/L (5-37); Bilirubin Total 0.4 mg/dL (0.0-1.0); Blood Urea Nitrogen 12 mg/dL (9-16); Calcium 9.7 mg/dL (8.4-10.2); Carbon Dioxide 29 mmol/L (22-29); Chloride 101 mmol/L (96-108); Creatinine Clr Calc Pharmacy 124.1; Estimated Glomerular Filt Rate > 60; Glucose Random 102 mg/dL (60-115); Magnesium 1.5 mg/dL (1.6-2.6); Potassium 4.3 mmol/L (3.3-5.1); Sodium 139 mmol/L (135-145)
[2021-08-12] MEDS: Amoxicillin/Potassium Clav 875 MG TABLET PO (23:58)
[2021-08-12] MEDS: OLANZapine 10 MG TABLET 30 MG PO (23:58)
[2021-08-13 01:57] VITALS: BP 133/61; PULSE 79; RESP 17; TEMP 36.8; O2SAT 97
--- NOTE | 2021-08-13 02:33 | MHC.CARE ---
CARE team completed evaluation. More collateral is needed from the [facility] residential program. CARE team will follow up in the morning prior to final dispo and plan of care.
--- NOTE | 2021-08-13 07:15 | PC.NURSE ---
Patient slept through the night, no distress observed/reported, patient is on antibiotic for Hidradenitis, patient was assessed by care team/pending disposition-COLIN f/u in the morning, behavior non concerning at this time, will continue to monitor.
--- NOTE | 2021-08-13 07:30 | PC.NURSE ---
patient appears to remain asleep at present respirations are even and unlabored patient appears in no distress.
--- NOTE | 2021-08-13 07:35 | PC.NURSE ---
patient appears to remain asleep at present respirations are even and unlabored patient appears in no distress
[2021-08-13] MEDS: Docusate Sodium 100 MG CAPSULE 200 MG PO (12:10)
[2021-08-13] MEDS: Sertraline HCL 100 MG TABLET 200 MG PO (12:11)
[2021-08-13] MEDS: Multivitamin TABLET 1 TAB PO (12:11)
[2021-08-13] MEDS: Cholecalciferol (Vitamin D3) 25 MCG TABLET 50 MCG PO (12:11)
[2021-08-13] MEDS: Ferrous Sulfate 324 MG TABLET.DR PO (12:12)
[2021-08-13] MEDS: Amoxicillin/Potassium Clav 875 MG TABLET PO (12:12)
--- NOTE | 2021-08-13 15:59 | MHC.CARE ---
Have left multiple messages throughout the afternoon for patient's skilled nursing staff as well as the clinical supervisor unloading.
== END 2021-08-13 18:51 | disposition home or self-care (01) ==
PROVIDERS: Physician Assistant; Emergency Provider Internal Medicine; PCP Nurse Practitioner Family
DX: F33.1 Major depressive disorder, recurrent, moderate (principal); R45.851 Suicidal ideations; F41.1 Generalized anxiety disorder; F43.0 Acute stress reaction; Z20.822 Contact with and (suspected) exposure to COVID-19; Z79.899 Other long term (current) drug therapy
CPT/HCPCS: 80053; 80307; 81003; 82077; 83735; 85025; 87635; 99284

== ENCOUNTER 2021-09-10 13:39 | Emergency (ER) | payer BC, SELFPAY ==
[2021-09-10 13:51] VITALS: BP 128/58; PULSE 94; RESP 18; TEMP 37.2; O2SAT 98; BMI 29.5
--- NOTE | 2021-09-10 14:12 | ED.PSYCH ---
HPI - Psych General Chief Complaint: Psychiatric Symptoms <ARTHUR Mo Last Filed: 09/10/21 16:51> Stated Complaint: SI w/no plan <ARTHUR Mo Last Filed: 09/10/21 16:51> Time Seen by Provider: 09/10/21 14:09 <ARTHUR Mo Last Filed: 09/10/21 16:51> Source: patient and EMS <ARTHUR Mo Last Filed: 09/10/21 16:51> Mode of arrival: EMS <ARTHUR Mo Last Filed: 09/10/21 16:51> Limitations: no limitations <ARTHUR Mo Last Filed: 09/10/21 16:51> History of Present Illness HPI Narrative: 26 y/o male with history of depression, autism, OCD, hidradenitis supperativa who presents to the ER via EMS from his [place] [facility] with recurrence suicidal and homicidal ideation. He reports just being discharged from [facility] after a week-long admission for depression. He was discharged back to the [place] [facility] that ?did not work out in the past.? He reports when he got there he did not feel right, he started having suicidal thoughts about wanting to hang himself. He was also thinking about homicidal thoughts and wanting to her other people in the [place] [facility] because he hates that there. He has never tried to hurt himself before. He is on psych medications and has been compliant with his recent admission. <ARTHUR Mo Last Filed: 09/10/21 16:51> MD complaint: suicidal ideation, feels depressed and homicidal ideation <ARTHUR Mo Last Filed: 09/10/21 16:51> Onset (ago): unknown <ARTHUR Mo Last Filed: 09/10/21 16:51> Duration: constant <ARTHUR Mo Last Filed: 09/10/21 16:51> History of same: Yes <ATRHUR Mo Last Filed: 09/10/21 16:51> Relieving factors: none <ARTHUR Mo Last Filed: 09/10/21 16:51> Exacerbating factors: none <ARTHUR Mo Last Filed: 09/10/21 16:51> Context: significant life stressor <ARTHUR Mo Last Filed: 09/10/21 16:51> Associated psychiatric symptoms: depression and suicidal ideation <ARTHUR Mo Last Filed: 09/10/21 16:51> Associated symptoms: denies other symptoms <ARTHUR Mo Last Filed: 09/10/21 16:51> Treatments prior to arrival: none <ARTHUR Mo Last Filed: 09/10/21 16:51> If self harm: admits thoughts of self harm and has plan <ARTHUR Mo Last Filed: 09/10/21 16:51> Details of plan: To hang himself <ARTHUR Mo Last Filed: 09/10/21 16:51> Related Data Home Medications: Home Medications Medication Instructions Recorded Confirmed docusate sodium 100 mg capsule 200 mg PO BID 05/22/21 09/10/21 (Colace) ferrous sulfate 325 mg (65 mg 1 tab PO DAILY 07/17/21 09/10/21 iron) tablet,delayed release hydroxyzine HCl 50 mg tablet 1 tab PO BID PRN 08/12/21 09/10/21 multivitamin with folic acid 400 1 tab PO DAILY 08/12/21 09/10/21 mcg tablet (Tab-A-Walter) olanzapine 20 mg tablet 30 mg PO BEDTIME 08/12/21 09/10/21 cholecalciferol (vitamin D3) 50 1 tab PO DAILY 09/10/21 09/10/21 mcg (2,000 unit) tablet <ARTHUR Mo Last Filed: 09/10/21 16:51> Allergies/Adverse Reactions: Allergies Allergy/AdvReac Type Severity Reaction Status Date / Time No Known Allergies Allergy Verified 05/22/21 20:06 <ARTHUR Mo Last Filed: 09/10/21 16:51> Review of Systems Review of Systems: Constitutional: No Fever, No Chills ENT/Mouth: No sore throat, No Rhinorrhea, No Swallowing Difficulty Cardiovascular: No Chest Pain, No SOB, No Orthopnea, No Edema Respiratory: No Cough, No Sputum, No Wheezing, No dyspnea Gastrointestinal: No Nausea, No Vomiting, No Diarrhea, No abdominal Pain Genitourinary: No Dysuria, No Urinary Frequency, No Hematuria Musculoskeletal: No joint pain, No Myalgias Skin: No Skin Lesions, No rash Neuro: No Weakness, No Numbness, No Dizziness, No Headache Psych: + Anxiety/Panic, + Depression, +SI, +HI, No AH/VH Heme/Lymph: No Bruising, No Lymphadenopathy <ARTHUR Mo - Last Filed: 09/10/21 16:51> [facility] Past Medical History Medical History: Medical History Conduct disorder Hidradenitis <ARTHUR Mo - Last Filed: 09/10/21 16:51> Social History Social History: Social History Household Members: Other Household Members Other:: [facility] Respite facility Housing: Assisted Living Facility Do you presently have visiting nurse or other home services: No Unable to assess alcohol history related to: Unknown Alcohol intake: never Patient Tobacco Use Status: Never used Tobacco Advance Directives: No Advance Directives Information Provided: No Guardian: Yes (Mother- Chrissy) service: No Sexual orientation: Don't Know <ARTHUR Mo - Last Filed: 09/10/21 16:51> Physical Exam Vital Signs: Vital Signs: Last Vital Signs Temp 97.9 F 09/11/21 07:48 Pulse 70 09/11/21 07:48 Resp 09/11/21 07:48 BP 99/48 L 09/11/21 07:48 Pulse Ox 95 09/11/21 07:48 BMI result Body Mass Index 29.5 <ARTHUR Mo - Last Filed: 09/10/21 16:51> Vital Signs: Last Vital Signs Temp 97.9 F 09/11/21 07:48 Pulse 70 09/11/21 07:48 Resp 09/11/21 07:48 BP 99/48 L 09/11/21 07:48 Pulse Ox 95 09/11/21 07:48 BMI result Body Mass Index 29.5 <ARTHUR Lozada - Last Filed: 09/10/21 23:42> Appearance: Alert. Oriented X3. No acute distress. Eyes: Pupils equal, round and reactive to light. ENT: Pharynx normal. Neck: Normal inspection. Neck supple. CVS: Normal heart rate and rhythm. Pulses normal. Respiratory: No respiratory distress. Breath sounds normal. Abdomen: Soft and nontender. +BS x4 Skin: Skin warm and dry. Normal skin color. Normal skin turgor. No rashes. Extremities: Left inner thigh with evidence inflamed hair follicles, mild irritation. No lower extremity edema. Neuro/psych: Oriented X 3. No motor deficit. No sensory deficit. CN II-XII intact. Flat affect, does not make eye contact. Soft-spoken. Poor insight and judgment. <ARTHUR oM Last Filed: 09/10/21 16:51> Course Course Course Narrative: 26-year-old male with history of OCD, autism, depression, SI, HI presents to the ER after a recent admission at [facility] with recurrent suicidal and homicidal intentions. Will have crisis team evaluate him. Awaiting utox but he does not appear to be intoxicated. <ARTHUR Mo Last Filed: 09/10/21 16:51> Reevaluation(s) Reevaluation #1: Physician observation started at 16:50pm. Patient placed in physician observation because patient is awaiting [facility] evaluation for the possible need of inpatient psych admission. At the time observation was started patient's vital signs were stable. Patient is alert and oriented. Neuro exam is non-focal. CV: RRR and lungs are clear. Will continue to monitor. <ARTHUR Mo Last Filed: 09/10/21 16:51> Reevaluation #2: Patient d/c from [facility] from [facility] inpatient psych. Per care team, they will re-evaluate patient in the morning. Likely patient's presentation is secondary to an issue with his [facility] [place] [facility]. <ARTHUR Lozada Last Filed: 09/10/21 23:42> Time: 23:42 <ARTHUR Lozada Last Filed: 09/10/21 23:42> [facility] - Psych Lab Data Labs: Lab Results 09/10/21 09/10/21 Range/Units 14:23 17:02 Urine Opiates Screen Not Detected (Not Detect) Urine Fentanyl Screen Not Detected (Not Detect) Ur Barbiturates Screen Not Detected (Not Detect) Ur Phencyclidine Scrn Not Detected (Not Detect) Ur Amphetamines Screen Not Detected (Not Detect) U Benzodiazepines Scrn Not Detected (Not Detect) Urine Cocaine Screen Not Detected (Not Detect) U Marijuana (THC) Screen Not Detected (Not Detect) COVID-19 (WES) Negative (Negative) COVID-19 Clin Com See Note <ARTHUR Mo - Last Filed: 09/10/21 16:51> Lab Results 09/10/21 09/10/21 Range/Units 14:23 17:02 Urine Opiates Screen Not Detected (Not Detect) Urine Fentanyl Screen Not Detected (Not Detect) Ur Barbiturates Screen Not Detected (Not Detect) Ur Phencyclidine Scrn Not Detected (Not Detect) Ur Amphetamines Screen Not Detected (Not Detect) U Benzodiazepines Scrn Not Detected (Not Detect) Urine Cocaine Screen Not Detected (Not Detect) U Marijuana (THC) Screen Not Detected (Not Detect) COVID-19 (WES) Negative (Negative) COVID-19 Clin Com See Note <ARTHUR Lozada - Last Filed: 09/10/21 23:42> Discharge Plan Discharge Clinical Impression: Depression, Suicidal ideation, Homicidal ideations <ARTHUR Mo - Last Filed: 09/10/21 16:51> Patient Disposition: Still a Patient <ARTHUR Mo Last Filed: 09/10/21 16:51> Prescriptions: No Action docusate sodium [Colace] 100 mg Capsule 200 mg PO BID 0RF olanzapine 20 mg tablet 30 mg PO BEDTIME 0RF multivitamin with folic acid [Tab-A-Walter] 400 mcg tablet 1 tab PO DAILY 0RF hydroxyzine HCl 50 mg tablet 1 tab PO BID PRN (Reason: Anxiety) 0RF ferrous sulfate 325 mg (65 mg iron) tablet,delayed release (DR/EC) 1 tab PO DAILY 0RF cholecalciferol (vitamin D3) 50 mcg (2,000 unit) tablet 1 tab PO DAILY 0RF <ARTHUR Mo Last Filed: 09/10/21 16:51>
[2021-09-10 14:47] LABS: COVID-19 Test Negative (Negative); IDNOW Serial# 16C4AD1C
[2021-09-10 16:06] VITALS: BP 115/55; PULSE 83; RESP 16; TEMP 37.2; O2SAT 98
[2021-09-10 17:31] LABS: Amphetamine Screen Urine Not Detected (Not Detect); Barbiturates, Urine Not Detected (Not Detect); Benzodiazepines Screen Urine Not Detected (Not Detect); Cannabinoid Screen Urine Not Detected (Not Detect); Cocaine Screen Urine Not Detected (Not Detect); Fentanyl, urine Not Detected (Not Detect); Opiate Screen Urine Not Detected (Not Detect); Phencyclidine Screen Urine Not Detected (Not Detect)
--- NOTE | 2021-09-10 19:14 | PC.NURSE ---
Report given to pod RN.
[2021-09-10 20:07] VITALS: BP 123/71; PULSE 69; RESP 18; TEMP 36.5; O2SAT 99
[2021-09-11 06:37] VITALS: BP 120/66; PULSE 72; RESP 16; TEMP 36.7; O2SAT 95
--- NOTE | 2021-09-11 07:13 | PC.NURSE ---
Patient slept through the night, no distress observed/reported, care team assessed the patient, no disposition at this time will be decided by meeting today with DDS, VSS, behavior appropriate, med rec competed and pending provider's approval, will continue to monitor.
--- NOTE | 2021-09-11 07:25 | PC.NURSE ---
patient appears to remain asleep at present respirations are even and unlabored patient appears in no distress
[2021-09-11 07:48] VITALS: BP 99/48; PULSE 70; RESP 13; TEMP 36.6; O2SAT 95
--- NOTE | 2021-09-11 10:29 | PC.NURSE ---
patient continues to rest and periodically request snacks/ice cream. remains in behavioral control
--- NOTE | 2021-09-11 11:06 | MHC.CARE ---
[facility] picking up patient at 1:00 pm, he is aware of the plan. Providers updated.
== END 2021-09-11 13:27 | disposition other institution (70) ==
PROVIDERS: Physician Assistant; Emergency Provider Emergency Medicine
DX: F33.9 Major depressive disorder, recurrent, unspecified (principal); R45.851 Suicidal ideations; R45.850 Homicidal ideations; F42.9 Obsessive-compulsive disorder, unspecified; F84.0 Autistic disorder; Z79.899 Other long term (current) drug therapy; Z20.822 Contact with and (suspected) exposure to COVID-19
CPT/HCPCS: 80307; 87635; 99284; 99285

== ENCOUNTER 2021-10-17 20:44 | Emergency (ER) | payer BC, SELFPAY ==
[2021-10-17 20:49] VITALS: BP 136/79; PULSE 91; RESP 18; TEMP 36.6; BMI 20.8
[2021-10-17 21:27] LABS: COVID-19 Test Negative (Negative)
[2021-10-17 21:30] LABS: Amphetamine Screen Urine Not Detected (Not Detect); Barbiturates, Urine Not Detected (Not Detect); Benzodiazepines Screen Urine Not Detected (Not Detect); Cannabinoid Screen Urine Not Detected (Not Detect); Cocaine Screen Urine Not Detected (Not Detect); Fentanyl, urine Not Detected (Not Detect); Opiate Screen Urine Not Detected (Not Detect); Phencyclidine Screen Urine Not Detected (Not Detect)
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
[2021-10-17] MEDS: OLANZapine 10 MG TABLET 20 MG PO (22:36)
--- NOTE | 2021-10-17 23:10 | MHC.CARE ---
Case was discussed with ED provider Annette Vivar and CARE hospice team lead Tova Gibson.
== END 2021-10-17 23:45 | disposition home or self-care (01) ==
PROVIDERS: Emergency Provider Internal Medicine
DX: R45.6 Violent behavior (principal); F91.9 Conduct disorder, unspecified; Z20.822 Contact with and (suspected) exposure to COVID-19; R45.850 Homicidal ideations; Z79.899 Other long term (current) drug therapy
CPT/HCPCS: 80307; 87635; 99282; 99284

== ENCOUNTER 2023-03-23 16:03 | Emergency (ER) | payer OTHER, SELFPAY ==
[2023-03-23 16:31] VITALS: BP 143/72; PULSE 98; RESP 18; TEMP 36.8; O2SAT 100; BMI 34.4
[2023-03-23 16:37] VITALS: BP 143/72; PULSE 98; RESP 18; TEMP 36.7; O2SAT 100
--- NOTE | 2023-03-23 17:08 | ED_ITS ---
HPI - Psych General Chief Complaint: Behavioral Concerns Stated Complaint: failure to thrive Time Seen by Provider: 03/23/23 16:49 Source: patient and old records reviewed Mode of arrival: EMS Limitations: no limitations History of Present Illness HPI Narrative: 27 yo male with PMH of OCD, autism spectrum disorder, depression, SI/HI, currently at [facility] at [facility] comes in with [facility] who state he is not eating, coming out of room, taking his medications. When I try to ask him questions he states ask them . intermediate is requesting labs and CARE team which the patient is agreeable to. complaint: other Onset (ago): day(s) (4) Duration: constant History of same: No Relieving factors: none Exacerbating factors: none Context: other Associated psychiatric symptoms: none Associated symptoms: denies other symptoms Treatments prior to arrival: none Related Data Home Medications Medication Instructions Recorded Confirmed ferrous sulfate 325 mg (65 mg 1 tab PO DAILY 07/17/21 03/23/23 iron) tablet,delayed release multivitamin with folic acid 400 1 tab PO DAILY 08/12/21 03/23/23 mcg tablet (Tab-A-Walter) olanzapine 20 mg tablet 20 mg PO BID psychosis 08/12/21 03/23/23 cholecalciferol (vitamin D3) 50 1 tab PO DAILY 09/10/21 03/23/23 mcg (2,000 unit) tablet acetylcysteine 600 mg capsule 1,200 mg PO BID 10/17/21 03/23/23 hydroxyzine pamoate 50 mg capsule 50 mg PO Q6H PRN Anxiety 10/17/21 03/23/23 sertraline 100 mg tablet 2 tab PO DAILY depressive disorder 10/17/21 03/23/23 bupropion HCl 300 mg 24 hr tablet, 300 mg PO DAILY 03/23/23 03/23/23 extended release doxycycline monohydrate 100 mg 100 mg PO BID 03/23/23 03/23/23 capsule folic acid 1 mg tablet 1 mg PO DAILY 03/23/23 03/23/23 metformin 500 mg tablet 500 mg PO BID 03/23/23 03/23/23 methotrexate sodium 2.5 mg tablet 7.5 mg PO QWEEK 03/23/23 03/23/23 Allergies Allergy/AdvReac Type Severity Reaction Status Date / Time No Known Allergies Allergy Verified 02/10/22 20:06 Review of Systems 2 Review of Systems: ROS unable to be obtained due to poor cooperation [facility] Past Medical History Attestation statement: The following information was validated with the patient. Source: old records reviewed Medical History Hidradenitis Conduct disorder Social History Social History Household Members: Other Household Members Other:: DDS Respite facility Housing: Assisted Living Facility Do you presently have visiting nurse or other home services: No Unable to assess alcohol history related to: Unknown Alcohol intake: never Patient Tobacco Use Status: Never used Tobacco Smoked in Last 30 Days: No Use of substances other than those prescribed or required for medical reasons: Unknown Advance Directives: No Advance Directives Information Provided: No Healthcare Proxy: No Guardian: Yes service: No Sexual orientation: Don't Know Physical Exam 2 Vital Signs: Vital Signs: Last Vital Signs Temp 98.1 F 03/23/23 16:37 Pulse 92 03/23/23 20:00 Resp 16 03/23/23 20:00 BP 131/84 03/23/23 20:00 Pulse Ox 99 03/23/23 20:00 O2 Del Method Room Air 03/23/23 20:00 BMI result Body Mass Index 34.4 Appearance: Alert. Oriented X3. No acute distress. Very withdrawn, flat affect. Seems agitated. Eyes: Pupils equal, round and reactive to light. ENT: Pharynx normal. Neck: Normal inspection. Neck supple. CVS: Normal heart rate and rhythm. Pulses normal. Respiratory: No respiratory distress. Breath sounds normal. Abdomen: Soft and nontender. Skin: Skin warm and dry. Normal skin color. Normal skin turgor. bilateral thigh and axilla hidradenitis lesions but no signs of active cellulitis chronic draining wounds Extremities: No lower extremity edema. No calf ttp Neuro: Oriented X 3. No motor deficit. No sensory deficit. Cn2-12 intact Course Course Course Narrative: Physician observation started at 516pm. Patient placed in physician observation because the patient needed more time for CARE team to assess the need for psych admission. At the time observation was started the patient's vitals were stable, patient is alert and oriented but slightly agitated, Neuro: nonfocal, CV RRR, Lungs clear Reevaluation(s) Reevaluation #1: Plan to keep until meeting tomorrow but should be good to go at 2pm Medications Administered Generic Name Dose Route Start Last Admin Trade Name Alanna PRN Reason Stop Dose Admin Bupropion HCl 300 mg 03/23/23 19:30 03/23/23 19:57 Bupropion Hcl Xl 300 Mg Tab.Er.24h PO 300 mg DAILY MARIO Administration Doxycycline Monohydrate 100 mg 03/23/23 21:00 03/23/23 19:57 Doxycycline Monohydrate 100 Mg Capsule PO 100 mg BID MARIO Administration Ferrous Sulfate 324 mg 03/23/23 19:30 03/23/23 19:57 Ferrous Sulfate 324 Mg Tablet.Dr PO 324 mg DAILY MARIO Administration Folic Acid 1 mg 03/23/23 19:30 03/23/23 19:57 Folic Acid 1 Mg Tablet PO 1 mg DAILY MARIO Administration Metformin HCl 500 mg 03/23/23 21:00 03/23/23 19:57 Metformin Hcl 500 Mg Tablet PO 500 mg BID MARIO Administration Multivitamins/Vitamin C 1 tab 03/23/23 19:30 03/23/23 19:58 Multivitamin Tablet PO 1 tab DAILY MARIO Administration Olanzapine 20 mg 03/23/23 21:00 03/23/23 19:57 Olanzapine 10 Mg Tablet PO 20 mg BID MARIO Administration Sertraline HCl 200 mg 03/23/23 19:30 03/23/23 19:57 Sertraline Hcl 100 Mg Tablet PO 200 mg DAILY MARIO Administration Vitamin D 50 mcg 03/23/23 19:30 03/23/23 19:58 Cholecalciferol (Vitamin D3) 25 Mcg Tablet PO 50 mcg DAILY MARIO Administration Medical Decision Making Medical Decision Making MDM Narrative: 27 yo male with PMH of OCD, autism spectrum disorder, depression, SI/HI here with c/o not eating, not taking medications, not leaving room - he will not answer my questions and will not cooperate. At this time will obtain basic labs and CARE team consult. He has MMM and stable VS. Differential Diagnosis Differential Diagnoses: The differential diagnosis associated with the presentation includes depression, FTT Admission/Observation Consideration of admission/observation: Escalation of care including admission/observation considered observe until CARE team sees patient Consult Healthcare Provider Management of the patient was discussed with: Behavioral Health Provider Lab Data [facility] Lab Attestation statement: I reviewed the patient's lab results. 03/23/23 17:18 03/23/23 17:18 Labs: Lab Results 03/23/23 Range/Units 17:18 WBC 14.2 H (4.8-10.8) X10*3/uL RBC 5.34 (4.60-5.80) X10*6/uL Hgb 15.3 (14.0-18.0) g/dl Hct 46.8 (42.0-52.0) % MCV 87.6 (80.0-98.0) fL MCH 28.7 (27.0-33.0) pg MCHC 32.7 (31.0-36.0) g/dl RDW 12.9 (11.0-16.0) % Plt Count 467 H (160-400) X10*3/uL MPV 9.3 L (9.4-12.4) fL Immature Gran % (Auto) 0.3 (0.0-0.4) % Neut % (Auto) 75.4 H (45-73) % Lymph % (Auto) 15.3 L (20-40) % Prentiss % (Auto) 8.4 (2-11) % Eos % (Auto) 0.3 (0-4) % Baso % (Auto) 0.3 (0-2) % Lymph # (Auto) 2.2 (1.2-4.9) X10*3/uL Prentiss # (Auto) 1.2 (0.1-1.2) X10*3/uL Eos # (Auto) 0.0 (0.0-0.4) X10*3/uL Baso # (Auto) 0.0 (0.0-0.2) X10*3/uL Abs Immat Gran (auto) 0.04 H (0.00-0.03) X10*3/uL Absolute Neuts (auto) 10.7 H (2.0-8.3) x10*3/uL Absolute Nucleated RBC 0.000 (0.0-0.012) X10*3/uL Nucleated RBC % (auto) 0.0 (0.0-0.2) /100WBC Sodium 138 (135-145) mmol/L Potassium 3.9 (3.3-5.1) mmol/L Chloride 100 (96-108) mmol/L Carbon Dioxide 26 (22-29) mmol/L Anion Gap 16 (12-20) BUN 10 (9-16) mg/dL Creatinine 0.94 (0.5-1.4) mg/dL Estim Creat Clear Calc 148.4 Estimated GFR > 60 Random Glucose 112 (60-115) mg/dL Calcium 9.9 (8.4-10.2) mg/dL Magnesium 1.9 (1.6-2.6) mg/dL Total Bilirubin 0.4 (0.0-1.0) mg/dL Direct Bilirubin 0.2 (0.0-0.5) mg/dL AST 12 (5-37) U/L ALT 7 (0-40) U/L Alkaline Phosphatase 134 H (39-117) U/L Total Protein 9.8 H (6.5-8.0) g/dL Albumin 4.1 (3.5-5.0) g/dL TSH 0.87 (0.32-4.0) uIU/mL Independent Historian Clinical information obtained from an independent historian. History obtained from or confirmed by: Other ([facility]) External Record Review External record reviewed: Inpatient record Discharge Plan Discharge Clinical Impression: Acute anxiety Patient Disposition: Home, Self-Care Instructions: Anxiety (ED) Additional Instructions: took medications while in ED - please return for any concerns, fevers or signs of infection Prescriptions: No Action olanzapine 20 mg tablet 20 mg PO BID multivitamin with folic acid [Tab-A-Walter] 400 mcg tablet 1 tab PO DAILY ferrous sulfate 325 mg (65 mg iron) tablet,delayed release (DR/EC) 1 tab PO DAILY cholecalciferol (vitamin D3) 50 mcg (2,000 unit) tablet 1 tab PO DAILY sertraline 100 mg tablet 2 tab PO DAILY hydroxyzine pamoate 50 mg capsule 50 mg PO Q6H PRN (Reason: Anxiety) acetylcysteine 600 mg Capsule 1,200 mg PO BID metformin 500 mg tablet 500 mg PO BID methotrexate sodium 2.5 mg tablet 7.5 mg PO QWEEK doxycycline monohydrate 100 mg capsule 100 mg PO BID folic acid 1 mg tablet 1 mg PO DAILY bupropion HCl 300 mg tablet extended release 24 hr 300 mg PO DAILY
[2023-03-23 17:23] LABS: MANUAL DIFF FLAG NO
[2023-03-23 17:24] LABS: Basophils Percent Auto 0.3 % (0-2); Eosinophils Percent Auto 0.3 % (0-4); Hematocrit 46.8 % (42.0-52.0); Hemoglobin 15.3 g/dl (14.0-18.0); Imm Gran Abs Auto 0.04 X10*3/uL (0.00-0.03); Imm Gran Pct Auto 0.3 % (0.0-0.4); Lymphocytes Absolute Auto 2.2 X10*3/uL (1.2-4.9); Lymphocytes Percent Auto 15.3 % (20-40); Mean Corpuscular HGB Conc 32.7 g/dl (31.0-36.0); Mean Corpuscular Hemoglobin 28.7 pg (27.0-33.0); Mean Corpuscular Volume 87.6 fL (80.0-98.0); Mean Platelet Volume 9.3 fL (9.4-12.4); Monocytes Absolute Auto 1.2 X10*3/uL (0.1-1.2); Monocytes Percent Auto 8.4 % (2-11); Neutrophils Absolute Auto 10.7 x10*3/uL (2.0-8.3); Neutrophils Percent Auto 75.4 % (45-73); Platelet Count 467 X10*3/uL (160-400); Red Blood Count 5.34 X10*6/uL (4.60-5.80); Red Cell Distribution Width 12.9 % (11.0-16.0); White Blood Count 14.2 X10*3/uL (4.8-10.8)
[2023-03-23 17:47] LABS: Alanine Aminotransferase 7 U/L (0-40); Albumin Level 4.1 g/dL (3.5-5.0); Alkaline Phosphatase 134 U/L (39-117); Anion Gap 16 (12-20); Aspartate Amino Transferase 12 U/L (5-37); Bilirubin Direct 0.2 mg/dL (0.0-0.5); Bilirubin Total 0.4 mg/dL (0.0-1.0); Blood Urea Nitrogen 10 mg/dL (9-16); Calcium 9.9 mg/dL (8.4-10.2); Carbon Dioxide 26 mmol/L (22-29); Chloride 100 mmol/L (96-108); Creatinine Clr Calc Pharmacy 148.4; Estimated Glomerular Filt Rate > 60; Glucose Random 112 mg/dL (60-115); Magnesium 1.9 mg/dL (1.6-2.6); Potassium 3.9 mmol/L (3.3-5.1); Sodium 138 mmol/L (135-145); Total Protein 9.8 g/dL (6.5-8.0)
[2023-03-23 17:59] LABS: TSH reflex Free T4 0.87 uIU/mL (0.32-4.0)
--- NOTE | 2023-03-23 18:01 | PHA.MEDREC ---
Pharmacy Consult ? Medication Reconciliation Pharmacy has completed the medication reconciliation. alf provided medication list without doses. Utilize claim history for doses. Will need to confirmed MTX day of the week if patient stays. Marge Muniz, JamesD
--- NOTE | 2023-03-23 19:15 | PC.NURSE ---
This Rn assisted primary RN in speaking with PT to encourage pt to eat, take meds and shower. PT agreed to taking medications. Information primary nurseMansoor
--- NOTE | 2023-03-23 19:34 | PC.NURSE ---
Assumed care of pt. Pt lying on stretcher, care worker outside room. pt endorsing no distress at this time. Agreed to cooperate for urine sample, provided and sent. Pending Care Team evaluation.
[2023-03-23] MEDS: OLANZapine 10 MG TABLET 20 MG PO (19:57)
[2023-03-23] MEDS: Doxycycline Monohydrate 100 MG CAPSULE PO (19:57)
[2023-03-23] MEDS: buPROPion HCl XL 300 MG TAB.ER.24H PO (19:57)
[2023-03-23] MEDS: Sertraline HCL 100 MG TABLET 200 MG PO (19:57)
[2023-03-23] MEDS: Folic Acid 1 MG TABLET PO (19:57)
[2023-03-23] MEDS: metFORMIN HCl 500 MG TABLET PO (19:57)
[2023-03-23] MEDS: Ferrous Sulfate 324 MG TABLET.DR PO (19:57)
[2023-03-23] MEDS: Multivitamin TABLET 1 TAB PO (19:58)
[2023-03-23] MEDS: Cholecalciferol (Vitamin D3) 25 MCG TABLET 50 MCG PO (19:58)
[2023-03-23 20:00] VITALS: BP 131/84; PULSE 92; RESP 16; O2SAT 99
[2023-03-23 22:00] VITALS: BP 114/75; PULSE 68; RESP 14; O2SAT 99
--- NOTE | 2023-03-23 22:03 | PC.NURSE ---
Rcvd call from BATSHEVA Velásquez, from patient care team regarding status update. Will be requesting pt remaing Phys Obs for med compliance from provider opposed to immediate DC.
--- NOTE | 2023-03-23 22:47 | MHC.CARE ---
Pt was Psychiatrically cleared by the CARE team and set for discharge but due to miscommunication Pt will remain overnight but will be discharged in the morning. There is a meeting set up for 1pm tomorrow between [facility] Social Work and his [facility] providers, however Pt should still be discharged in the morning ,before the meeting ,as his disposition won't change. CARE team will contact Trista Rebollar ([employer] [phone]) in the morning to arrange orange picker time.
--- NOTE | 2023-03-23 23:34 | PC.NURSE ---
Provided PT with 3 cheese sticks, sandwich and juice.
[2023-03-24 06:00] VITALS: BP 110/80; PULSE 89; RESP 14; O2SAT 97
[2023-03-24 07:18] VITALS: BP 120/72; PULSE 98; RESP 18; TEMP 36.7; O2SAT 98
[2023-03-24] MEDS: Doxycycline Monohydrate 100 MG CAPSULE PO (08:10)
[2023-03-24] MEDS: buPROPion HCl XL 300 MG TAB.ER.24H PO (08:10)
[2023-03-24] MEDS: metFORMIN HCl 500 MG TABLET PO (08:10)
[2023-03-24] MEDS: Ferrous Sulfate 324 MG TABLET.DR PO (08:10)
[2023-03-24] MEDS: Cholecalciferol (Vitamin D3) 25 MCG TABLET 50 MCG PO (08:10)
[2023-03-24] MEDS: OLANZapine 10 MG TABLET 20 MG PO (08:10)
[2023-03-24] MEDS: Folic Acid 1 MG TABLET PO (08:10)
[2023-03-24] MEDS: Multivitamin TABLET 1 TAB PO (08:10)
[2023-03-24] MEDS: Sertraline HCL 100 MG TABLET 200 MG PO (08:10)
--- NOTE | 2023-03-24 09:24 | PC.NURSE ---
assessed patients wounds on axilae and inner thigh. MD notified and also assessed wounds. MD stated that they are chronic and recommends more frequent dressing changes. This RN spoke to Christen HERMAN and communicated that we have no changes in care of wounds except to keep on top of dressing changes and to follow up with doctor who follows Jesse huddleston. Dispo pending pickup
--- NOTE | 2023-03-24 09:26 | MHC.CARE ---
reached out to Trista Rebollar, as indicated to do in order to schedule a discharge time, her number is [phone]. She reports that they need to have an internal discussion about time for transport back to facility.
== END 2023-03-24 10:36 | disposition home or self-care (01) ==
PROVIDERS: Emergency Medicine; Emergency Provider Emergency Medicine
DX: F41.1 Generalized anxiety disorder (principal); F43.0 Acute stress reaction; Z79.899 Other long term (current) drug therapy
CPT/HCPCS: 36415; 80048; 80076; 83735; 84443; 85025; 99284; S9485

== ENCOUNTER 2023-10-26 15:13 | Emergency (ER) | payer OTHER, SELFPAY ==
--- NOTE | ~2023-10-26 | CT_ITS ---
EXAMINATION: CT ABDOMEN AND PELVIS WITH CONTRAST CLINICAL INFORMATION: Buttock wound COMPARISON: None available. TECHNIQUE: Multidetector volumetric images were obtained from the superior aspect of the liver through the pubic symphysis following administration 85 mL of Omnipaque 350 intravenous contrast. Sagittal and coronal reformatted images were obtained on the technologist's workstation. Oral contrast: No This CT examination was performed using dose optimization techniques as appropriate, variously including the following: *Automated exposure control *Adjustment of mA and/or kV according to patient size (this includes techniques or standardized protocols for targeted exams where dose is matched to indication/reason for exam; i.e. extremities or head) *Use of iterative reconstruction technique DLP: 1157 mGy-cm FINDINGS: LUNG BASES: The visualized lung bases are unremarkable. LIVER, GALLBLADDER, AND BILIARY TREE: The liver is normal in size, shape, and attenuation. No focal hepatic lesion or biliary ductal dilatation is present. The gallbladder is unremarkable with no evidence of radiopaque gallstones, gallbladder wall thickening, or obvious pericholecystic inflammatory changes. PANCREAS: Unremarkable. SPLEEN: Unremarkable. ADRENAL GLANDS: Unremarkable. KIDNEYS AND URETERS: The kidneys are normal in size, shape, and attenuation. No hydronephrosis, hydroureter, or calculi seen. No perinephric stranding. BLADDER: Unremarkable. GASTROINTESTINAL TRACT: The small and large bowel are unremarkable. The appendix is unremarkable. Minimal right perianal subcutaneous soft tissue thickening and air which could represent an anal fissure or soft tissue wound. No extension into the perirectal space ABDOMINAL WALL: No significant hernia is appreciated. LYMPH NODES: Normal. VASCULAR: Unremarkable. PELVIC VISCERA: Unremarkable. OSSEOUS STRUCTURES: Unremarkable. CT/CT abdomen pelvis w IV con IMPRESSION: Minimal right perianal subcutaneous soft tissue thickening and air which could represent an anal fissure or soft tissue wound. No extension into the perirectal space.
[2023-10-26 15:26] VITALS: BP 129/68; PULSE 87; RESP 16; TEMP 36.8; O2SAT 96; BMI 35.5
--- NOTE | 2023-10-26 15:28 | ED_ITS ---
HPI - General Adult General Chief complaint: Skin/Abscess/Foreign Body Stated complaint: skin issues Time Seen by Provider: 10/26/23 16:35 Source: patient, RN notes reviewed and old records reviewed Mode of arrival: ambulatory Limitations: no limitations History of Present Illness ED Provider: LEANNE ACOSTA PA-C HPI narrative: 28 year old male with pmhx significant for autism, depression, OCD, hidradenitis suppurativa presents to the ED today for evaluation of pain in his buttocks associated with drainage x weeks. Reports an open area of skin between his buttocks with associated yellow drainage that becomes painful while showering when the area gets wet. He has not been taking anything at home for the pain. He is currently completing a course of prednisone prescribed by his PCP. Not currently on antibiotics. He has not been seen by wound care or general surgery for this. Denies fevers, chills, N/V, abdominal pain. Related Data Home Medications ?Medication ?Instructions ?Recorded ?Confirmed ferrous sulfate 325 mg (65 mg 1 tab PO DAILY 07/17/21 03/23/23 iron) tablet,delayed release multivitamin with folic acid 400 1 tab PO DAILY 08/12/21 03/23/23 mcg tablet (Tab-A-Walter) olanzapine 20 mg tablet 20 mg PO BID psychosis 08/12/21 03/23/23 cholecalciferol (vitamin D3) 50 1 tab PO DAILY 09/10/21 03/23/23 mcg (2,000 unit) tablet acetylcysteine 600 mg capsule 1,200 mg PO BID 10/17/21 03/23/23 hydroxyzine pamoate 50 mg capsule 50 mg PO Q6H PRN Anxiety 10/17/21 03/23/23 sertraline 100 mg tablet 2 tab PO DAILY depressive disorder 10/17/21 03/23/23 bupropion HCl 300 mg 24 hr tablet, 300 mg PO DAILY 03/23/23 03/23/23 extended release doxycycline monohydrate 100 mg 100 mg PO BID 03/23/23 03/23/23 capsule folic acid 1 mg tablet 1 mg PO DAILY 03/23/23 03/23/23 metformin 500 mg tablet 500 mg PO BID 03/23/23 03/23/23 methotrexate sodium 2.5 mg tablet 7.5 mg PO QWEEK 03/23/23 03/23/23 Previous Rx's ?Medication ?Instructions ?Recorded amoxicillin 875 mg-potassium 1 tab PO BID #14 tabs 10/26/23 clavulanate 125 mg tablet Allergies Allergy/AdvReac Type Severity Reaction Status Date / Time No Known Allergies Allergy Verified 10/26/23 15:30 Review of Systems 2 Review of Systems: Constitutional: No fever, chills, fatigue, night sweats, weight changes ENT/Mouth: No ear pain, hearing loss, nasal congestion, sinus pain, rhinorrhea, sore throat Eyes: No eye pain, swelling, redness, vision changes, discharge Cardio: No chest pain, palpitations, [place], orthopnea, peripheral edema Pulm: No SOB, cough, sputum, wheezing, dyspnea, hemoptysis GI: No nausea, vomiting, hematemesis, abdominal pain, diarrhea, constipation, hematochezia, melena : No irregular bleeding, dysuria, frequency, urgency, hesitancy, hematuria, flank pain, urinary flow changes, urinary incontinence or retention MSK: No back pain, neck pain, joint pain, myalgias, +buttock pain Skin: No lesions, rashes Neuro: No weakness, numbness, paresthesias, LOC, dizziness, headache Psych: No anxiety/panic, depression, SI/HI, AH/VH All other systems reviewed and are negative. [facility] Past Medical History Attestation statement: The following information was validated with the patient. Source: old records reviewed and nursing notes reviewed Medical History Hidradenitis Conduct disorder Social History Social History Household Members: Other Household Members Other:: DDS Respite facility Housing: Assisted Living Facility Do you presently have visiting nurse or other home services: No Unable to assess alcohol history related to: Unknown Alcohol intake: never Patient Tobacco Use Status: Never used Tobacco Smoked in Last 30 Days: No Use of substances other than those prescribed or required for medical reasons: No Advance Directives: No Advance Directives Information Provided: No Do you have a plan to hurt others: No Plan service: No Sexual orientation: Don't Know Physical Exam ED Vital Signs: Vital Signs - 24 hr 10/26/23 15:26 10/26/23 17:31 10/26/23 20:53 Temperature 98.3 F 98.3 F Pulse Rate 87 73 73 Respiratory Rate 16 12 16 Blood Pressure 129/68 114/72 114/72 Pulse Oximetry 96 9 L 98 Oxygen Delivery Method Room Air Room Air Room Air BMI result Body Mass Index 35.5 Vital signs stable, afebrile Const General: cooperative, healthy appearing, comfortable and no acute distress Orientation/consciousness: patient oriented x3 HENMT Head: Yes normal to inspection, Yes No palpable skull fracture present, Yes normocephalic and Yes atraumatic Eyes General: appearance normal, both eyes and all related structures Pupils: Equal, round and reactive pupils present Neck Neck: Yes normal visual inspection, Yes full ROM and Yes no lymphadenopathy Resp Effort & Inspection: normal respiratory effort and able to speak in complete sentences Cardio Rate: regular rate Rhythm: regular rhythm GI Other: Obese abdomen, soft, nondistended, nontender to palpation, no rebound tenderness or guarding. General: Yes no CVA tenderness Back/Spine/Pelvis Back: no CVA tenderness Skin Other: + refer to photos of buttocks below + large open wound noted to gluteal cleft wih granulation tissue and yellow drainage. unable to visualize depth. ttp. Neuro General: patient oriented x3 Cranial nerves: Yes Equal, round and reactive pupils present Course Course Course Narrative: This is a Rapid Medical Examination (RME) performed by Gagandeep Paulino PA-C in triage. Full HPI, ROS, assessment and treatment plan per primary provider in the Main ED. 28 yo male with history of Autism, depression, OCD, history of hidradenitis who presents to the ER for evaluation of pain in his buttocks associated with drainage. He is concerned he has hidradenitis in this area. Pain when showering and water gets on it. He describes an open area of skin with drainage. Plan: examination in treatment room Reevaluation(s) Reevaluation #1: 1826-- CBC with slight leukocytosis of 12 without left shift. This is likely secondary to current prednisone course. I do not have concern for systemic infection. Chemistry without acute electrolyte abnormality requiring intervention. Normal renal function. Lactic WNL at 1. I do not have suspicion for sepsis at this time and do not feel as though patient needs IV antibiotics. Currently receiving IV fluids along with morphine for pain control. > patient stable at the end of my shift. Sign-out given to Alta PUCKETT pending urinalysis, CT abdomen/pelvis and disposition. Reevaluation #2: CT/CT abdomen pelvis w IV con IMPRESSION: Minimal right perianal subcutaneous soft tissue thickening and air which could represent an anal fissure or soft tissue wound. No extension into the perirectal space. will start augmentin. referral to surgery and wound center. stable for d/c home with outpatient follow up Time: 20:37 Medications Administered Discontinued Medications Generic Name Dose Route Start Last Admin Trade Name Alanna PRN Reason Stop Dose Admin Sodium Chloride 1,000 mls @ 999 mls/hr 10/26/23 17:15 10/26/23 18:30 Ns IV 10/26/23 18:15 Infused .Q1H1M MARIO Infusion Iohexol 85 ml 10/26/23 19:07 10/26/23 19:08 Iohexol 350 Mg/Ml 100 Ml Infus..Btl IV 10/26/23 19:08 85 ml ONCE ONE Administration Morphine Sulfate 2 mg 10/26/23 17:11 10/26/23 17:23 Morphine Sulfate 2 Mg/Ml Cartridge IVPUSH 10/26/23 17:12 2 mg ONCE ONE Administration Protocol Medical Decision Making Medical Decision Making [facility] Narrative: 28 year old male with pmhx significant for autism, depression, OCD, hidradenitis suppurativa presents to the ED today for evaluation of pain in his buttocks associated with drainage x weeks. Vital signs stable, afebrile. He is nontoxic appearing in no acute distress however an obvious discomfort when sitting on buttocks. On exam, large open wound noted to gluteal cleft wih granulation tissue and yellow drainage. unable to visualize depth. ttp. Differential diagnosis includes chronic wound. Will obtain CT abdomen/pelvis to rule out osteo/abscess. No concern for septic infection. Plan for labs, CT abdomen/pelvis, IV fluids, pain control. Differential Diagnosis Differential Diagnoses: The differential diagnosis associated with the presentation includes As above Admission/Observation Consideration of admission/observation: Escalation of care including admission/observation considered Admission considered on presentation. Lab Data [facility] Lab Attestation statement: I reviewed the patient's lab results. As above 10/26/23 17:08 10/26/23 17:08 Labs: Lab Results 10/26/23 10/26/23 10/26/23 Range/Units 17:07 17:08 19:27 WBC 12.0 H (4.8-10.8) X10*3/uL RBC 4.72 (4.60-5.80) X10*6/uL Hgb 12.8 L (14.0-18.0) g/dl Hct 39.6 L (42.0-52.0) % MCV 83.9 (80.0-98.0) fL MCH 27.1 (27.0-33.0) pg MCHC 32.3 (31.0-36.0) g/dl RDW 14.0 (11.0-16.0) % Plt Count 460 H (160-400) X10*3/uL MPV 9.6 (9.4-12.4) fL Immature Gran % (Auto) 0.4 (0.0-0.4) % Neut % (Auto) 62.1 (45-73) % Lymph % (Auto) 23.4 (20-40) % [place] % (Auto) 12.0 H (2-11) % Eos % (Auto) 1.7 (0-4) % Baso % (Auto) 0.4 (0-2) % Lymph # (Auto) 2.8 (1.2-4.9) X10*3/uL [place] # (Auto) 1.4 H (0.1-1.2) X10*3/uL Eos # (Auto) 0.2 (0.0-0.4) X10*3/uL Baso # (Auto) 0.1 (0.0-0.2) X10*3/uL Abs Immat Gran (auto) 0.05 H (0.00-0.03) X10*3/uL Absolute Neuts (auto) 7.5 (2.0-8.3) x10*3/uL Absolute Nucleated RBC 0.000 (0.0-0.012) X10*3/uL Nucleated RBC % (auto) 0.0 (0.0-0.2) /100WBC Sodium 136 (135-145) mmol/L Potassium 4.0 (3.3-5.1) mmol/L Chloride 100 (96-108) mmol/L Carbon Dioxide 25 (22-29) mmol/L Anion Gap 15 (12-20) BUN 12 (9-16) mg/dL Creatinine 0.86 (0.5-1.4) mg/dL Estim Creat Clear Calc 163.1 Estimated GFR > 60 Random Glucose 97 (60-115) mg/dL Lactic Acid 1.0 (0.5-2.0) mmol/L Calcium 9.2 D (8.4-10.2) mg/dL Magnesium 1.7 (1.6-2.6) mg/dL Urine Color Yellow Urine Appearance Clear Urine pH 6.0 (5.0-9.0) Ur Specific [place] 1.010 (1.005-1.025) Urine Protein Negative (Neg-Trace) mg/dL Urine Glucose (UA) Negative (Negative) mg/dL Urine Ketones Negative (Negative) mg/dL Urine Blood Negative (Negative) Urine Nitrite Negative (Negative) Ur Leukocyte Esterase Negative (Negative) Independent Interpretation I performed an independent interpretation of an: CT Scan Interpretation: CT abdomen/ pelvis showing soft tissue thickening, agree with radiologist's interpretation. Radiology Impression Discussion of test interpretation with radiology: I have reviewed the radiologist's reading. Radiologist Impression: EXAMINATION: CT ABDOMEN AND PELVIS WITH CONTRAST CLINICAL INFORMATION: Buttock wound COMPARISON: None available. TECHNIQUE: Multidetector volumetric images were obtained from the superior aspect of the liver through the pubic symphysis following administration 85 mL of Omnipaque 350 intravenous contrast. Sagittal and coronal reformatted images were obtained on the technologist's workstation. Oral contrast: No This CT examination was performed using dose optimization techniques as appropriate, variously including the following: *Automated exposure control *Adjustment of mA and/or kV according to patient size (this includes techniques or standardized protocols for targeted exams where dose is matched to indication/reason for exam; i.e. extremities or head) *Use of iterative reconstruction technique DLP: 1157 mGy-cm FINDINGS: LUNG BASES: The visualized lung bases are unremarkable. LIVER, GALLBLADDER, AND BILIARY TREE: The liver is normal in size, shape, and attenuation. No focal hepatic lesion or biliary ductal dilatation is present. The gallbladder is unremarkable with no evidence of radiopaque gallstones, gallbladder wall thickening, or obvious pericholecystic inflammatory changes. PANCREAS: Unremarkable. SPLEEN: Unremarkable. ADRENAL GLANDS: Unremarkable. KIDNEYS AND URETERS: The kidneys are normal in size, shape, and attenuation. No hydronephrosis, hydroureter, or calculi seen. No perinephric stranding. BLADDER: Unremarkable. GASTROINTESTINAL TRACT: The small and large bowel are unremarkable. The appendix is unremarkable. Minimal right perianal subcutaneous soft tissue thickening and air which could represent an anal fissure or soft tissue wound. No extension into the perirectal space ABDOMINAL WALL: No significant hernia is appreciated. LYMPH NODES: Normal. VASCULAR: Unremarkable. PELVIC VISCERA: Unremarkable. OSSEOUS STRUCTURES: Unremarkable. CT/CT abdomen pelvis w IV con IMPRESSION: Minimal right perianal subcutaneous soft tissue thickening and air which could represent an anal fissure or soft tissue wound. No extension into the perirectal space. External Record Review External record reviewed: Inpatient record Prescription Management I considered prescription management with: Pain Medication and Antibiotic (augmentin) Chronic Conditions Patient?s care impacted by: Other (Hidradenitis suppurativa) Social Determinants Patient?s care significantly limited by Social Determinants of Health including: Other Social Determinant of Health Critical Care Time Critical Care Time Critical Care Time: Yes Total Critical Care Time: 32 Attestation: Critical care time in the amount of 32 minutes has been provided to the patient in terms of direct patient care, frequent reevaluation on IV morphine, review and interpretation of medical data and results, and management of potentially life-threatening conditions. This is all outside of any medical procedures. Discharge Plan Discharge Clinical Impression: Buttock wound Patient Disposition: Home, Self-Care Instructions: Acute Wounds (DC) Additional Instructions: your lab workup today was reassuring your CT scan did not show any deep infection recommend you follow up with [facility] for further evaluation and treatment Take the prescribed antibiotics as directed, complete the entire course and do not miss any doses Take motrin and tylenol for pain If you develop new or worsening symptoms call 911 or come back to the ER for further evaluation. Prescriptions: New amoxicillin-pot clavulanate 875-125 mg tablet 1 tab PO BID Qty: 14 0RF No Action olanzapine 20 mg tablet 20 mg PO BID multivitamin with folic acid [Tab-A-Walter] 400 mcg tablet 1 tab PO DAILY ferrous sulfate 325 mg (65 mg iron) tablet,delayed release (DR/EC) 1 tab PO DAILY cholecalciferol (vitamin D3) 50 mcg (2,000 unit) tablet 1 tab PO DAILY sertraline 100 mg tablet 2 tab PO DAILY hydroxyzine pamoate 50 mg capsule 50 mg PO Q6H PRN (Reason: Anxiety) acetylcysteine 600 mg Capsule 1,200 mg PO BID metformin 500 mg tablet 500 mg PO BID methotrexate sodium 2.5 mg tablet 7.5 mg PO QWEEK doxycycline monohydrate 100 mg capsule 100 mg PO BID folic acid 1 mg tablet 1 mg PO DAILY bupropion HCl 300 mg tablet extended release 24 hr 300 mg PO DAILY Referrals: [facility] [Provider Group] (CT/CT abdomen pelvis w IV con IMPRESSION: Minimal right perianal subcutaneous soft tissue thickening and air which could represent an anal fissure or soft tissue wound. No extension into the perirectal space.) [facility] [[place]] Interventions: ED Discharge Assessment Last Done: 10/26/23 20:53 Discharge Date/Time: 10/26/23 20:54 Print Language: Citizen [place]
--- NOTE | 2023-10-26 16:44 | PC.NURSE ---
Provider to bedside for primary eval, plan for labs and imaging.
[2023-10-26 17:13] LABS: MANUAL DIFF FLAG NO
[2023-10-26] MEDS: 0.9 % Sodium Chloride 1,000 ML 999 ML IV (17:23)
[2023-10-26] MEDS: Morphine Sulfate 2 MG/ML CARTRIDGE IVPUSH (17:23)
--- NOTE | 2023-10-26 17:25 | PC.NURSE ---
Pt medicated per MAR, IVF infusing without difficulty. Awaiting CT scan, aware of plan of care.
[2023-10-26 17:30] LABS: Anion Gap 15 (12-20); Blood Urea Nitrogen 12 mg/dL (9-16); Calcium 9.2 mg/dL (8.4-10.2); Carbon Dioxide 25 mmol/L (22-29); Chloride 100 mmol/L (96-108); Creatinine Clr Calc Pharmacy 163.1; Estimated Glomerular Filt Rate > 60; Glucose Random 97 mg/dL (60-115); Magnesium 1.7 mg/dL (1.6-2.6); Sodium 136 mmol/L (135-145)
[2023-10-26 17:31] VITALS: BP 114/72; PULSE 73; RESP 12; O2SAT 9
[2023-10-26 17:41] LABS: Basophils Absolute Auto 0.1 X10*3/uL (0.0-0.2); Basophils Percent Auto 0.4 % (0-2); Eosinophils Absolute Auto 0.2 X10*3/uL (0.0-0.4); Eosinophils Percent Auto 1.7 % (0-4); Hematocrit 39.6 % (42.0-52.0); Hemoglobin 12.8 g/dl (14.0-18.0); Imm Gran Abs Auto 0.05 X10*3/uL (0.00-0.03); Imm Gran Pct Auto 0.4 % (0.0-0.4); Lymphocytes Absolute Auto 2.8 X10*3/uL (1.2-4.9); Lymphocytes Percent Auto 23.4 % (20-40); Mean Corpuscular HGB Conc 32.3 g/dl (31.0-36.0); Mean Corpuscular Hemoglobin 27.1 pg (27.0-33.0); Mean Corpuscular Volume 83.9 fL (80.0-98.0); Mean Platelet Volume 9.6 fL (9.4-12.4); Monocytes Absolute Auto 1.4 X10*3/uL (0.1-1.2); Neutrophils Absolute Auto 7.5 x10*3/uL (2.0-8.3); Neutrophils Percent Auto 62.1 % (45-73); Platelet Count 460 X10*3/uL (160-400); Red Blood Count 4.72 X10*6/uL (4.60-5.80)
--- NOTE | 2023-10-26 17:49 | MHC.EDTECH ---
This tech informed patient that a urine sample was required for testing. Offered patient a urinal or assistance to the bathroom (Due to IV fluids running) Patient requested urinal. This tech provided urinal wit instructions on clean catch. Patient expressed understanding.
[2023-10-26] MEDS: iohexoL 350 MG/ML 100 ML INFUS..BTL 85 ML IV (19:08)
[2023-10-26 19:35] LABS: Appearance Urine Clear; Color Urine Yellow; Glucose Urine UA Negative (Negative); Leukocyte Esterase Urine Negative (Negative); Nitrite Urine Negative (Negative); Urine Blood Negative (Negative); Urine Ketones Negative (Negative); Urine Protein Negative (Neg-Trace)
[2023-10-26 20:53] VITALS: BP 114/72; PULSE 73; RESP 16; TEMP 36.8; O2SAT 98
== END 2023-10-26 20:54 | disposition home or self-care (01) ==
PROVIDERS: Physician Assistant Medical; Emergency Provider Emergency Medicine Emergency Medical Services
DX: S31.829A Unspecified open wound of left buttock, initial encounter (principal); S31.819A Unspecified open wound of right buttock, initial encounter; R10.2 Pelvic and perineal pain; R11.0 Nausea; Y33.XXXA Other specified events, undetermined intent, initial encounter; Y93.9 Activity, unspecified; Y92.89 Other specified places as the place of occurrence of the external cause; Y99.8 Other external cause status; Z79.899 Other long term (current) drug therapy
CPT/HCPCS: 36415; 74177; 80048; 81003; 83605; 83735; 85025; 87040; 96361; 96374; 99284; J2270; Q9967